=== PATIENT | male | born 1940 | race Caucasian/White ===

== ENCOUNTER 2017-03-13 15:16 | Emergency (ER) | payer MEDICARE, SELFPAY ==
[2017-03-13 15:19] VITALS: BP 113/66; PULSE 65; RESP 18; O2SAT 94; BMI 27.3
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
--- NOTE | 2017-03-13 15:27 | CT_ITS ---
CT head/brain wo con HISTORY: Confusion, altered level of consciousness, altered mental status ITS.REASON: visual halluciations x 2 years ORDERING PHYSICIAN: Brittany Jimenez MD PATIENT AGE: 76 years COMPARISON: 03/19/2015 TECHNIQUE: Axial images obtained without contrast. Brain and bone windows reviewed. FINDINGS: No midline shift, mass effect, intracranial hemorrhage, hydrocephalus, or extra-axial fluid collection is evident. There is generalized atrophy with microangiopathic gliotic change. No significant change. The calvarium has an unremarkable appearance. No mastoid effusion. No sinus air-fluid levels.. IMPRESSION: 1. No acute finding. 2. Atrophy with chronic microangiopathic changes.
--- NOTE | 2017-03-13 15:27 | XR_ITS ---
XR chest AP HISTORY: Heart disease, confusion, altered mental status ITS.REASON: confusion ORDERING PHYSICIAN: Brittany Jimenez MD PATIENT AGE: 76 years COMPARISON: 12/30/2012 FINDINGS: Prior median sternotomy. Normal heart size.. The lungs are clear without infiltrates, suspicious nodules, or pleural effusions. No acute bony abnormalities. IMPRESSION: No change with no acute finding
--- NOTE | 2017-03-13 16:09 | PC.NURSE ---
dr mcpherson spoke with family , family has decided to get the ct and chest xray , but does not want the lab work .
== END 2017-03-13 17:09 | disposition home or self-care (01) ==
PROVIDERS: Emergency Provider Emergency Medicine; Family Provider Internal Medicine; PCP Internal Medicine
DX: F03.90 Unspecified dementia, unspecified severity, without behavioral disturbance, psychotic disturbance, mood disturbance, and anxiety (principal); G20 Parkinson's disease; R44.1 Visual hallucinations; I25.10 Atherosclerotic heart disease of native coronary artery without angina pectoris; Z95.2 Presence of prosthetic heart valve; Z79.82 Long term (current) use of aspirin; I10 Essential (primary) hypertension; F10.20 Alcohol dependence, uncomplicated
CPT/HCPCS: 70450; 71045; 99282

== ENCOUNTER → 2017-10-08 10:10 | Outpatient (CLI) | payer MEDICARE, SELFPAY ==
--- NOTE | 2017-10-08 10:21 | XR_ITS ---
XR shoulder LT min 2V HISTORY: ITS.REASON: LT SHOULDER PAIN,DECREASED ROM ORDERING PHYSICIAN: Darci Motta PATIENT AGE: 77 years Comparison: None FINDINGS: There are severe osteoarthritic changes of the glenohumeral joint with loss of the joint space and osteosclerosis with osteophyte formation and minimal superior subluxation of the humeral head. The acromioclavicular joint has an unremarkable appearance. There is some calcification noted in the region of the supraspinatus tendon consistent with calcific tendinitis. A laminated calcific density is present in the subcoracoid area and may be due to a synovial osteochondroma. No fracture or dislocation. 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
== END ==
PROVIDERS: PCP Internal Medicine; Visit Provider Internal Medicine
DX: M25.511 Pain in right shoulder (principal); R68.89 Other general symptoms and signs
CPT/HCPCS: 73030

== ENCOUNTER → 2018-05-07 12:03 | Outpatient (CLI) | payer MEDICARE, SELFPAY ==
--- NOTE | 2018-05-07 12:08 | XR_ITS ---
XR shoulder LT min 2V HISTORY: Left shoulder pain ITS.REASON: grashy, axillary and supraspinatus views ORDERING PHYSICIAN: Julián Blanco MD PATIENT AGE: 77 years Comparison: 10/08/2017 FINDINGS: There are severe osteoarthritic changes of the glenohumeral joint with some mild cortical irregularity of the humeral head with osteophyte along the inferior aspect of the neck of the humerus. No evidence of fracture or dislocation. Calcification is present along the superior aspect of the humeral head consistent with calcific tendinitis. There is a 2.9 cm loose body along the anterior aspect of the glenoid. IMPRESSION: Severe osteoarthritis with calcific tendinitis and prominent loose body along the anterior medial aspect of the glenoid. Consider CT for better delineation
== END ==
PROVIDERS: PCP Internal Medicine; Visit Provider Orthopaedic Surgery
DX: G89.29 Other chronic pain (principal); M19.012 Primary osteoarthritis, left shoulder; M25.512 Pain in left shoulder
CPT/HCPCS: 73030

== ENCOUNTER → 2018-09-19 13:57 | Outpatient (CLI) | payer MEDICARE, SELFPAY ==
--- NOTE | 2018-09-19 13:59 | CT_ITS ---
CT shoulder LT wo con INDICATION: Left shoulder pain, abnormal radiograph ITS.REASON: evaluate glenoid bone stock ORDERING PHYSICIAN: Julián Blanco MD PATIENT AGE: 78 years COMPARISON: 05/07/2018 TECHNIQUE: Contrast Used: Oral Contrast: Axial images were obtained. Sagittal and coronal reformatted images are Reviewed as well. All CT scans at the facility use one or more dose reduction, viz: automated exposure control, ma/kV adjustment per patient size (including targeted exams where dose is matched to indication, i.e. head), or iterative reconstruction technique. FINDINGS: Severe osteoarthritic changes of the glenohumeral joint with loss of joint space, osteosclerosis, and remodeling of the humeral head and glenoid fossa with osteophyte formation. Small Subarticular cystic changes are present within the humeral head and glenoid . There are mild osteoarthritic changes of the acromioclavicular joint with subacromial stenosis of 5 mm with mild hypertrophic changes along the inferior surface of the acromion and clavicle. There is an abnormal area of soft tissue density along the left humeral neck anteriorly measuring 8 mm rounded in nature with slight increased density centrally. This is in the region of the expected course of the long head of the biceps tendon. There is a 3 cm oval calcific density which is anterior to the glenoid area of the scapula and anterior to the subscapularis muscle. This corresponds to the radiographic abnormality and likely represents a loose calcified intra-articular bodies/synovial osteochondroma within the subscapular/infracoracoid bursa. This is inferior to the coracoid. This is well-circumscribed. No fracture or dislocation. No lytic changes. IMPRESSION: 1. Severe osteoarthritis of the glenohumeral joint 2. 3 cm oval calcific density inferior to the coracoid and anterior to the subscapularis. There is some soft tissue density surrounding this area. This may represent a prominent synovial osteochondroma within the subscapularis bursa. 3. Abnormal soft tissue density in the region of the expected course of the bicipital tendon. Differential diagnosis would include tendinitis, bicipital tendon tear with retraction, or even neoplasm. MRI of the shoulder without and with contrast may add further value if clinically warranted
== END ==
PROVIDERS: PCP Internal Medicine; Visit Provider Orthopaedic Surgery
DX: G89.29 Other chronic pain (principal); M19.012 Primary osteoarthritis, left shoulder; M25.512 Pain in left shoulder
CPT/HCPCS: 73200

== ENCOUNTER 2018-10-14 20:16 | Observation (INO) ==
[2018-10-14 20:32] LABS: Microscopic, Urine URINE MICROSCOPIC (MICROSCOPIC)
[2018-10-14 20:36] LABS: Appearance,Urine CLEAR (Clear); Basophils % 0.4 % (0.1-2.0); Bilirubin,Urine Negative (Negative); Blood, Urine 2+ (Negative); Color,Urine YELLOW (Yellow); Eosinophils % 0.2 % (0.1-12.0); Glucose,Urine (UA) Negative (Negative); Hemoglobin 17.3 g/dL (14.1-18.0); Ketones,Urine Negative (Negative); Leukocyte Esterase,Urine Negative (Negative); Lymphocytes # 1.7 K/mm3 (0.7-4.5); Mean Corpuscular HGB Conc 33.2 g/dL (31.8-35.4); Mean Corpuscular Volume 97.8 fl (80-94); Mean Platelet Volume 9.9 fl (7.4-10.4); Monocytes # 0.6 K/mm3 (0.1-1.0); Monocytes % 5.2 % (1.7-9.3); Neutrophils # 8.3 K/mm3 (1.8-7.8); Neutrophils % 78.3 % (37.0-80.0); Platelet Count 228 K/mm3 (142-424); Protein,Urine 1+ (Negative); Red Blood Count 5.32 M/mm3 (4.60-6.20); Red Cell Distribution Width 12.8 % (11.5-17.5); Specific Gravity, Urine 1.025 (1.005-1.030); White Blood Count 10.6 K/mm3 (4.8-10.8)
[2018-10-14 20:41] LABS: Bacteria,Urine 1+ /lpf; Mucus,Urine 1+ /lpf
[2018-10-14 20:50] LABS: Alanine Aminotransferase 18 U/L (12-78); Albumin Level 4.6 gm/dL (3.4-5.0); Albumin/Globulin Ratio 1.3 (1.1-1.8); Alkaline Phosphatase 71 U/L (46-116); Aspartate Amino Transferase 29 U/L (15-37); Bilirubin,Total 1.1 mg/dL (0.2-1.0); Blood Urea Nitrogen 19 mg/dL (7-18); Calcium 9.6 mg/dL (8.5-10.1); Carbon Dioxide 30 mmol/L (21.0-32.0); Chloride 101 mmol/L (98-107); Globulin 3.6 gm/dl (1.3-3.2); Glucose 104 mg/dL (74-106); Sodium 142 mmol/L (136-145); Total Protein,Serum 8.2 gm/dL (6.4-8.2)
--- NOTE | 2018-10-14 21:12 | Emergency Department Note ---
ED Disposition Clinical Impression: Acute delirium Disposition: Admitted as Observation Condition on Discharge: Good Instructions: DI for Altered Mental Status Referrals: Darci Motta [Primary Care Provider] - - Critical Care Critical Care Time: No Attestation: On 10/14/18, the high probability of a clinically significant, sudden or life threatening deterioration of the following system(s) required my full and direct attention, intervention and personal management. The time I documented below is in addition to time spent performing reported procedures but includes the f theodorelowing listed in this critical care notation. Medical Decision Making - Medical Records Medical records reviewed: Yes: I reviewed the patient's medical records. - Dereck Inquiry Pt receiving controlled substance: No Vital Signs: 10/14/18 20:17 10/14/18 20:32 Temperature 98.8 F Temperature Source Rectal Pulse Rate [Right Radial] 61 Respiratory Rate 20 Blood Pressure [Right Arm] 166/92 H Blood Pressure Mean [Right Arm] 116 02 Sat by Pulse Oximetry 94 L Oxygen Delivery Method Room Air - Lab Data Lab results reviewed: Yes: I reviewed the patient's lab results. Lab Results 10/14/18 20:25: Urine Color Yellow, Urine Appearance Clear, Urine pH 6.0, Ur Specific Cunningham 1.025, Urine Protein 1+, Urine Glucose (UA) Negative, Urine Ketones Negative, Urine Blood 2+, Urine Nitrate Negative, Urine Bilirubin Negative, Urine Urobilinogen 1.0, Ur Leukocyte Esterase Negative, Urine RBC 5- 10, Urine WBC 3-5, Urine Bacteria 1+, Urine Mucus 1+ 10/14/18 20:25: WBC 10.6, RBC 5.32, Hgb 17.3, Hct 52.0, MCV 97.8 H, MCH 32.5 H, MCHC 33.2, RDW 12.8, Plt Count 228, MPV 9.9, Neut % (Auto) 78.3, Lymph % (Auto) 16.0, [place] % (Auto) 5.2, Eos % (Auto) 0.2, Baso % (Auto) 0.4, Neut # (Auto) 8.3 H, Lymph # (Auto) 1.7, [place] # (Auto) 0.6, Eos # (Auto) 0.0, Baso # (Auto) 0.0 10/14/18 20:25: Sodium 142, Potassium 4.0, Chloride 101, Carbon Dioxide 30, Anion Gap 15.0, BUN 19 H, Creatinine 1.03, Estimated Creat Clear 64, Estimated GFR 69, Est GFR ( Amer) 84, Glucose 104, Calcium 9.6, Total Bilirubin 1.1 H, AST 29, ALT 18, Alkaline Phosphatase 71, Troponin I < 0.02, Total Protein 8.2, Albumin 4.6, Globulin 3.6 H, Albumin/Globulin Ratio 1.3 10/14/18 20:25: Lactate 0.8 Result diagrams: 10/14/18 20:25 10/14/18 20:25 Orders (Tests/Meds): ED MEDICATIONS Generic Name Dose Route Start Last Admin Trade Name Freq PRN Reason Stop Dose Admin Sodium Chloride 1,000 mls @ 999 mls/hr 10/14/18 20:45 10/14/18 20:59 Sod Chlor 0.9% 1000ml Bag IV 10/14/18 21:45 999 mls/hr .[id number] FIORDALIZA Administration ORDERS Category Date Time Status CT head/brain wo con Stat Cat Scan 10/14/18 20:24 Taken XR chest portable Stat Exams 10/14/18 20:24 Taken Blood Culture Stat Micro 10/14/18 20:25 Received Urine Culture(cathed specimen) Stat Micro 10/14/18 21:33 Ordered - Radiology Data #1 Image(s): Chest Image Reviewed: Yes I reviewed the patient's radiology image Preliminary Findings: Abnormal - CT Data CT Scan: Head Time Received: 21:[address] Reviewed: Yes: I have viewed the radiologist's interpretation Preliminary Findings: Normal/NAD - ECG Data Tracing #1 Normal Sinus Rhythm: Yes Ischemic changes: non-specific ST-T wave changes Altered Mental Status HPI - General Chief Complaint: Altered Mental Status Stated Complaint: altered mental status Time Seen by Provider: 10/14/18 20:30 Mode of Arrival: EMS Source of Information: Patient, Spouse, Relative, EMS, Medical Record Limitations: Altered Mental Status Description of Symptoms (Recalled from ER Triage Doc. by RN): pt was seen here in [facility] on sunday and dx with bronchitis. states he was given antibiotics and steroids. states that patient has alzheimers and that he has been "acting funny" and she couldnt "bring him back." states that he "wouldnt respond." pt states patient has been running a "light fever." states that the patient hasnt eaten or drank hardly anything for her at home and that he got out of bed last night and "tore the living room up" states that patient is seeing things that arent there and talking to people that arent there. - History of Present Illness HPI narrative: pt with hx of dementia with inc confusion over the last few days - he has dec po intake and reports slight fever at home- no trauma - no rash - he was seen in [facility] on 10/11 and placed on abx/steroids - MD complaint: altered mental status, confusion Onset (ago): day(s) Timing confirmed by: spouse, family member Severity: moderate Consistency of symptoms: waxing and waning Associated symptoms: denies other symptoms - Related Data Home Medications Medication Instructions Recorded Confirmed Allopurinol [Allopurinol 100mg 100 mg PO DAILY 03/13/17 10/14/18 tablet] Aspirin [Aspirin 81mg chewable 81 mg PO DAILY 03/13/17 10/14/18 tab] Atenolol [Atenolol 25mg Tab] 25 mg PO DAILY 03/13/17 10/14/18 Simvastatin 20 mg PO HS 03/13/17 10/14/18 Tamsulosin HCl [Flomax 0.4mg 0.4 mg PO HS 03/13/17 10/14/18 capsule] donepezil 10 mg tablet 10 mg PO HS 10/07/18 10/14/18 memantine 10 mg tablet 10 mg PO BID tab 10/07/18 10/14/18 Cyanocobalamin (Vitamin B-12) 1,000 mcg PO DAILY 10/11/18 10/14/18 [Vitamin B-12 1000mcg Tablet] Thiamine HCl [Vitamin B-1] 250 mg PO DAILY 10/11/18 10/14/18 Azithromycin [Z-Kirill 250mg Tab*] 250 mg PO UD DOSE PK 10/14/18 10/14/18 methylPREDNISolone [Medrol] 4 mg PO DIRECTED 10/14/18 10/14/18 Previous Rx's Medication Instructions Recorded Albuterol Sulfate [Albuterol HFA 1 - 2 puffs IH Q4-6H PRN #1 inh 10/11/18 Inhaler] Allergies Allergy/AdvReac Type Severity Reaction Status Date / Time No Known Allergies Allergy Verified 10/14/18 20:24 [facility] History - Hepatitis A Screen Drug use history?: No High risk sexual behaviors?: No History of sexually transmitted infection?: No Currently employed?: No Childcare worker?: No Do you have indoor plumbing?: Yes Do you have electricity?: Yes Attestation statement:: This patient has been screened for Hepatitis A risk factors. I have reviewed the patient's past medical history: Yes Medical History: Reports:: Coronary Artery Disease, Dementia, Hyperlipidemia, Hypertension Denies:: Diabetes Mellitus Type 1, Diabetes Mellitus Type 2 Other Medical History: Reports: Arthritis Laterality Cases: Right: Arthroscopy Shoulder, Bilateral: Arthroscopy Hip, Total Knee Replacement Other Surgeries: Yes: Other - Social History Smoking Status: Former smoker Alcohol Intake: former Alcohol Intake Frequency:: 0-2 drinks per day Occupational Status: retired Family Hx:: No significant family history ROS Obtained: Yes unobtainable due to mental status Physical Exam - General General appearance: alert - Head Head exam: normocephalic - Eye Eye exam: Present: PERRL, EOMI. Absent: scleral icterus - ENT ENT exam: Present: mucous membranes dry - Neck Neck exam: Present: trachea midline - Respiratory Respiratory exam: Present: normal lung sounds bilaterally. Absent: respiratory distress - Cardiovascular Cardiovascular exam: Present: regular rate, systolic murmur, +S4 - Abdominal Exam Abdominal exam: Present: soft, normal bowel sounds. Absent: tenderness - Extremities Exam Extremities exam: Present: full ROM - Neurological Exam Neurological exam: Present: alert, CN II-XII intact, other (no focal changes ) - Skin Skin exam: Absent: rash
[2018-10-15 04:23] LABS: Basophils % 0.4 % (0.1-2.0); Eosinophils % 0.2 % (0.1-12.0); Hematocrit 44.9 % (42.0-52.0); Lymphocytes # 1.8 K/mm3 (0.7-4.5); Lymphocytes % 22.2 % (10-50); Mean Corpuscular HGB Conc 32.9 g/dL (31.8-35.4); Mean Corpuscular Volume 97.2 fl (80-94); Mean Platelet Volume 10.5 fl (7.4-10.4); Monocytes # 0.5 K/mm3 (0.1-1.0); Monocytes % 5.5 % (1.7-9.3); Neutrophils # 5.9 K/mm3 (1.8-7.8); Neutrophils % 71.6 % (37.0-80.0); Platelet Count 194 K/mm3 (142-424); Red Blood Count 4.62 M/mm3 (4.60-6.20); Red Cell Distribution Width 12.8 % (11.5-17.5); White Blood Count 8.2 K/mm3 (4.8-10.8)
[2018-10-15 04:41] LABS: Anion Gap 11.6 mEq/L (5-15)
[2018-10-15 05:14] LABS: Hemoglobin 14.9 g/dL (14.1-18.0)
[2018-10-15 05:15] LABS: Calcium 8.6 mg/dL (8.5-10.1)
--- NOTE | 2018-10-15 07:26 | Pharmacy Consult Notes ---
[facility] Pharmacy VTE Monitoring - Patient Demographics Admission date: 10/14/18 Report Date: 10/15/18 Time: 07:25 Allergies/Adverse Reactions: Patient Allergies No Known Allergies Allergy (Verified 10/14/18 20:24) Height: 1.7 m Weight: 80.371 kg Patient Problems: Current Active Problems Acute delirium (Acute) - VTE Risk Labs: VTE Related Lab Results Hgb 14.9 g/dL (14.1-18.0) D 10/15/18 04:15 Hct 44.9 % (42.0-52.0) 10/15/18 04:15 Plt Count 194 K/mm3 (142-424) 10/15/18 04:15 BUN 16 mg/dL (7-18) 10/15/18 04:15 Creatinine 0.97 mg/dL (0.70-1.30) 10/15/18 04:15 Estimated Creat Clear 66 mL/min (50-200) 10/15/18 04:15 Was VTE Risk Assessment Performed: Yes VTE Risk Level: Moderate Risk - Prophylaxis VTE Prophylaxis Ordered?: Yes Types of VTE Prophylaxis: TEDS Knee High Location of Applied Device: Bilateral Lower Extremeties - VTE Diagnosis Confirmed Treatment or plan recommended: Continue Current Treatment
[2018-10-15 08:02] VITALS: BP 163/92
--- NOTE | 2018-10-15 10:53 | H&P/Discharge Summary ---
General - General Admission date:: 10/14/18 Discharge date: 10/15/18 *Admission Date: 10/14/18 *Chief complaint: AMS *History of present illness: Mr. Abebe is an 78-year-old male with history of dementia on memantine and donepezil who was started on steroids this past week due to bronchitis. Within 24 hours of starting steroids, the patient developed worsening altered mental status. Was unable to sleep, waking in the night wreaking havoc on his home per his . She states he was confused, not acting himself, showed destructive behavior, total absence of appetite. This concerned her so she brought him to the emergency room where he was admitted for further management. Steroids stopped on admission. She denies any trauma, head injury. States he has been having worsening confusion with waxing and waning over the past few months. On assessment this morning, patient knows his name, where he is. According to his , he is back to baseline and has had "100% improvement". [facility] History I have reviewed the patient's past medical history: Yes Medical History: Reports:: Coronary Artery Disease, Dementia, Hyperlipidemia, Hypertension, Myocardial Infarction Denies:: Cancer, Diabetes Mellitus Type 1, Diabetes Mellitus Type 2 *Have you ever received a pneumonia vaccine?: Yes *Have you received a flu vaccine this season?: Yes Other Medical History: Reports: Arthritis, Cataracts Laterality Cases: Right: Arthroscopy Shoulder, Bilateral: Arthroscopy Hip, Total Knee Replacement Other Surgeries: Yes: Cardiac Surgery, Colonoscopy, Open Heart Surgery, Other (oral surgery) - *Social History Educational Level: Attended College Smoking Status: Former smoker Tobacco Type: cigarettes # Packs/Day (cigarettes): 1 Smoking End Date: 1988 Alcohol Intake: former Alcohol Intake Frequency:: 0-2 drinks per day *Occupational Status:: retired Housing: house Household Members: spouse *Travel in the last 8 weeks: None Family Hx:: No significant family history Review of Systems - Review of Systems Review of systems:: pertinent systems reviewed and negative unless documented below Exam Vital signs and Labs for Last 24 Hours: Temp Pulse Resp BP Pulse Ox 99.0 F 55 L 17 163/92 H 93 L 10/15/18 08:00 10/15/18 08:00 10/15/18 08:00 10/15/18 08:00 10/15/18 08:00 Laboratory Results - last 24 hr 10/14/18 20:25: Urine Color Yellow, Urine Appearance Clear, Urine pH 6.0, Ur Specific [place] 1.025, Urine Protein 1+, Urine Glucose (UA) Negative, Urine Ketones Negative, Urine Blood 2+, Urine Nitrate Negative, Urine Bilirubin Negative, Urine Urobilinogen 1.0, Ur Leukocyte Esterase Negative, Urine RBC 5- 10, Urine WBC 3-5, Urine Bacteria 1+, Urine Mucus 1+ 10/14/18 20:25: WBC 10.6, RBC 5.32, Hgb 17.3, Hct 52.0, MCV 97.8 H, MCH 32.5 H, MCHC 33.2, RDW 12.8, Plt Count 228, MPV 9.9, Neut % (Auto) 78.3, Lymph % (Auto) 16.0, [place] % (Auto) 5.2, Eos % (Auto) 0.2, Baso % (Auto) 0.4, Neut # (Auto) 8.3 H, Lymph # (Auto) 1.7, [place] # (Auto) 0.6, Eos # (Auto) 0.0, Baso # (Auto) 0.0 10/14/18 20:25: Sodium 142, Potassium 4.0, Chloride 101, Carbon Dioxide 30, Anion Gap 15.0, BUN 19 H, Creatinine 1.03, Estimated Creat Clear 64, Estimated GFR 69, Est GFR ( Amer) 84, Glucose 104, Calcium 9.6, Total Bilirubin 1.1 H, AST 29, ALT 18, Alkaline Phosphatase 71, Troponin I < 0.02, Total Protein 8.2, Albumin 4.6, Globulin 3.6 H, Albumin/Globulin Ratio 1.3 10/14/18 20:25: Lactate 0.8 10/15/18 01:05: Troponin I < 0.02 10/15/18 04:15: Troponin I 0.02 10/15/18 04:15: WBC 8.2, RBC 4.62, Hgb 14.9 D, Hct 44.9, MCV 97.2 H, MCH 32.0 H , MCHC 32.9, RDW 12.8, Plt Count 194, MPV 10.5 H, Neut % (Auto) 71.6, Lymph % (Auto) 22.2, [place] % (Auto) 5.5, Eos % (Auto) 0.2, Baso % (Auto) 0.4, Neut # (Auto) 5.9, Lymph # (Auto) 1.8, [place] # (Auto) 0.5, Eos # (Auto) 0.0, Baso # (Aut o) 0.0 10/15/18 04:15: Sodium 144, Potassium 3.6, Chloride 106, Carbon Dioxide 30, Anion Gap 11.6, BUN 16, Creatinine 0.97, Estimated Creat Clear 66, Estimated GFR 74, Est GFR ( Amer) 90, Glucose 82 D, Calcium 8.6 D I & O for Last 24 hours: Intake & Output 10/12/18 10/13/18 10/14/18 10/15/18 23:59 23:59 23:59 23:59 Intake Total 1690 / 1690 Output Total 150 / 150 1000 / 1000 Balance -150 / -150 690 / 690 Weight 79.152 kg 80.371 kg Microbiology Reports for the Last 24 Hours: Microbiology 10/15/18 00:00 Sputum - Expectorated Sputum Gram Stain - Final - Constitutional no acute distress, cooperative - *Routine HEENT Exam Head: Present: normocephalic, atraumatic Eye: Present: EOMI, PERRL ENT: Present: mucous membranes moist - *Routine Neck Exam Present: supple. Absent: lymphadenopathy - *Routine Respiratory Exam Present: CTA bilaterally - *Routine Cardiovascular Exam Present: RRR - *Routine Abdominal Exam Present: soft, normoactive bowel sounds. Absent: tenderness - *Routine Skin Exam Present: warm. Absent: rash - *Routine Neurological Exam Present: alert, oriented X3. Absent: altered mental status Hospital Course Hospital Course: Admitted for altered mental status. Monitored overnight. Steroids held on admission. Patient back to baseline this morning with no further altered mental status. Noted to have slower heart rate in the setting of beta-laura usage however asymptomatic. Patient able to ambulate independently. Of note did have minimal hematuria after catheterization, no obstruction. Remained afebrile, denies shortness of breath, chest pain, nausea or vomiting. Reports improvement in mentation and alertness. No acute needs at this time. Medically stable for discharge home. Recommend follow-up in a week with his primary care and following up with cardiology to discuss adjustments to blood pressure/beta- blockade medications. Results Labs on day of discharge: Labs from last 24 hours 10/15/18 10/15/18 10/15/18 04:15 04:15 04:15 WBC 8.2 RBC 4.62 Hgb 14.9 D Hct 44.9 MCV 97.2 H MCH 32.0 H MCHC 32.9 RDW 12.8 Plt Count 194 MPV 10.5 H Neut % (Auto) 71.6 Lymph % (Auto) 22.2 [place] % (Auto) 5.5 Eos % (Auto) 0.2 Baso % (Auto) 0.4 Neut # (Auto) 5.9 Lymph # (Auto) 1.8 [place] # (Auto) 0.5 Eos # (Auto) 0.0 Baso # (Auto) 0.0 Sodium 144 Potassium 3.6 Chloride 106 Carbon Dioxide 30 Anion Gap 11.6 BUN 16 Creatinine 0.97 Estimated Creat Clear 66 Estimated GFR 74 Est GFR ( Amer) 90 Glucose 82 D Lactate Calcium 8.6 D Total Bilirubin AST ALT Alkaline Phosphatase Troponin I 0.02 Total Protein Albumin Globulin Albumin/Globulin Ratio Urine Color Urine Appearance Urine pH Ur Specific [place] Urine Protein Urine Glucose (UA) Urine Ketones Urine Blood Urine Nitrate Urine Bilirubin Urine Urobilinogen Ur Leukocyte Esterase Urine RBC Urine WBC Urine Bacteria Urine Mucus 10/15/18 10/14/18 10/14/18 01:05 20:25 20:25 WBC RBC Hgb Hct MCV MCH MCHC RDW Plt Count MPV Neut % (Auto) Lymph % (Auto) [place] % (Auto) Eos % (Auto) Baso % (Auto) Neut # (Auto) Lymph # (Auto) [place] # (Auto) Eos # (Auto) Baso # (Auto) Sodium 142 Potassium 4.0 Chloride 101 Carbon Dioxide 30 Anion Gap 15.0 BUN 19 H Creatinine 1.03 Estimated Creat Clear 64 Estimated GFR 69 Est GFR ( Amer) 84 Glucose 104 Lactate 0.8 Calcium 9.6 Total Bilirubin 1.1 H AST 29 ALT 18 Alkaline Phosphatase 71 Troponin I < 0.02 < 0.02 Total Protein 8.2 Albumin 4.6 Globulin 3.6 H Albumin/Globulin Ratio 1.3 Urine Color Urine Appearance Urine pH Ur Specific [place] Urine Protein Urine Glucose (UA) Urine Ketones Urine Blood Urine Nitrate Urine Bilirubin Urine Urobilinogen Ur Leukocyte Esterase Urine RBC Urine WBC Urine Bacteria Urine Mucus 10/14/18 10/14/18 20:25 20:25 WBC 10.6 RBC 5.32 Hgb 17.3 Hct 52.0 MCV 97.8 H MCH 32.5 H MCHC 33.2 RDW 12.8 Plt Count 228 MPV 9.9 Neut % (Auto) 78.3 Lymph % (Auto) 16.0 [place] % (Auto) 5.2 Eos % (Auto) 0.2 Baso % (Auto) 0.4 Neut # (Auto) 8.3 H Lymph # (Auto) 1.7 [place] # (Auto) 0.6 Eos # (Auto) 0.0 Baso # (Auto) 0.0 Sodium Potassium Chloride Carbon Dioxide Anion Gap BUN Creatinine Estimated Creat Clear Estimated GFR Est GFR ( Amer) Glucose Lactate Calcium Total Bilirubin AST ALT Alkaline Phosphatase Troponin I Total Protein Albumin Globulin Albumin/Globulin Ratio Urine Color Yellow Urine Appearance Clear Urine pH 6.0 Ur Specific [place] 1.025 Urine Protein 1+ Urine Glucose (UA) Negative Urine Ketones Negative Urine Blood 2+ Urine Nitrate Negative Urine Bilirubin Negative Urine Urobilinogen 1.0 Ur Leukocyte Esterase Negative Urine RBC 5-10 Urine WBC 3-5 Urine Bacteria 1+ Urine Mucus 1+ DS: Diagnosis - Discharge Diagnosis (1) HTN (hypertension) Status: Chronic (2) Acute delirium Status: Resolved (3) Dementia Status: Chronic (4) CAD (coronary artery disease) Status: Chronic Discharge Plan - Patient Discharge Instructions ACTIVITY: Continue current activity DIET: continue same diet Patient Instructions: DI for Altered Mental Status - Follow up Plan Follow up with: Darci Motta [Primary Care Provider] - Disposition: Home, Self-Halfway Medications: Home Medications Medication Instructions Recorded Confirmed Type Allopurinol [Allopurinol 100mg 200 mg PO DAILY 03/13/17 10/15/18 History tablet] Aspirin [Aspirin 81mg chewable 81 mg PO DAILY 03/13/17 10/14/18 History tab] Atenolol [Atenolol 25mg Tab] 25 mg PO DAILY 03/13/17 10/14/18 History Simvastatin 20 mg PO HS 03/13/17 10/14/18 History Tamsulosin HCl [Flomax 0.4mg 0.4 mg PO HS 03/13/17 10/14/18 History capsule] donepezil 10 mg tablet 10 mg PO HS 10/07/18 10/14/18 History memantine 10 mg tablet 10 mg PO BID tab 10/07/18 10/14/18 History Cyanocobalamin (Vitamin B-12) 1,000 mcg PO DAILY 10/11/18 10/14/18 History [Vitamin B-12 1000mcg Tablet] Thiamine HCl [Vitamin B-1] 250 mg PO DAILY 10/11/18 10/14/18 History Azithromycin [Z-Kirill 250mg Tab*] 250 mg PO UD DOSE PK 10/14/18 10/14/18 History methylPREDNISolone [Medrol] 4 mg PO DIRECTED 10/14/18 10/14/18 History Lisinopril [Lisinopril 20mg Tab] 20 mg PO DAILY 10/15/18 10/15/18 History Polyethylene Glycol 3350 17 gm PO DAILY 10/15/18 10/15/18 History Prescriptions/Medication Reconciliation: Continued memantine 10 mg tablet 10 mg PO BID tab donepezil 10 mg tablet 10 mg PO HS Aspirin [Aspirin 81mg chewable tab] 81 mg PO DAILY Tamsulosin HCl [Flomax 0.4mg capsule] 0.4 mg PO HS Simvastatin 20 mg PO HS Atenolol [Atenolol 25mg Tab] 25 mg PO DAILY Allopurinol [Allopurinol 100mg tablet] 200 mg PO DAILY Cyanocobalamin (Vitamin B-12) [Vitamin B-12 1000mcg Tablet] 1,000 mcg PO DAILY Thiamine HCl [Vitamin B-1] 250 mg PO DAILY Polyethylene Glycol 3350 17 gm PO DAILY Lisinopril [Lisinopril 20mg Tab] 20 mg PO DAILY Discontinued methylPREDNISolone [Medrol] 4 mg PO DIRECTED Azithromycin [Z-Kirill 250mg Tab*] 250 mg PO UD DOSE PK - Problem Reconciliation Problems Reviewed?: Yes
--- NOTE | 2018-10-17 18:19 | Electrocardiograph Report ---
APPROVED REPORT Exam: Resting ECG HR:60 bpm ECG Measurements Heart Rate 60 AXES CA 148 P -29 QRSd 72 QRS -24 QT 426 T-16 QTc 426 <Conclusion> Normal sinus rhythm LA Abnormal ECG Electronically signed by : Darci Motta, 10/17/2018 18:18:29
== END 2018-10-15 15:10 | disposition home or self-care (01) ==
LOC: 2ND 20:16 → ER 20:16 → 2ND 22:18
PROVIDERS: ADMIT Family Medicine; ATTEND Internal Medicine Adolescent Medicine
DX: F03.90 Unspecified dementia, unspecified severity, without behavioral disturbance, psychotic disturbance, mood disturbance, and anxiety; Z79.52 Long term (current) use of systemic steroids; Z79.899 Other long term (current) drug therapy; I25.2 Old myocardial infarction; Z79.82 Long term (current) use of aspirin; I10 Essential (primary) hypertension; I25.10 Atherosclerotic heart disease of native coronary artery without angina pectoris
CPT/HCPCS: 36415; 70450; 71010; 71045; 80048; 80053; 81001; 83605; 84484; 85025; 87040; 87070; 87205; 93005; 96365; 99285; G0378

== ENCOUNTER 2018-10-16 10:15 | Observation (INO) ==
[2018-10-16 10:19] LABS: Microscopic, Urine URINE MICROSCOPIC (MICROSCOPIC)
[2018-10-16 10:33] LABS: Appearance,Urine CLEAR (Clear); Bilirubin,Urine Negative (Negative); Blood, Urine 2+ (Negative); Color,Urine YELLOW (Yellow); Glucose,Urine (UA) Negative (Negative); Ketones,Urine Negative (Negative); Leukocyte Esterase,Urine Negative (Negative); PH,Urine 6.5 (5.0-8.5); Protein,Urine Negative (Negative)
[2018-10-16 10:38] LABS: Anion Gap 10.6 mEq/L (5-15); Blood Urea Nitrogen 14 mg/dL (7-18); Calcium 9.1 mg/dL (8.5-10.1); Carbon Dioxide 31 mmol/L (21.0-32.0); Chloride 102 mmol/L (98-107); Glucose 107 mg/dL (74-106); Sodium 140 mmol/L (136-145)
[2018-10-16 10:40] LABS: Basophils # 0.1 K/mm3 (0-0.2); Basophils % 0.6 % (0.1-2.0); Eosinophils # 0.1 K/mm3 (0.0-0.4); Eosinophils % 0.6 % (0.1-12.0); Hematocrit 48.2 % (42.0-52.0); Hemoglobin 16.1 g/dL (14.1-18.0); Lymphocytes # 1.5 K/mm3 (0.7-4.5); Lymphocytes % 14.8 % (10-50); Mean Corpuscular HGB Conc 33.4 g/dL (31.8-35.4); Mean Corpuscular Volume 96.9 fl (80-94); Mean Platelet Volume 9.8 fl (7.4-10.4); Monocytes # 0.8 K/mm3 (0.1-1.0); Monocytes % 7.4 % (1.7-9.3); Neutrophils # 7.9 K/mm3 (1.8-7.8); Neutrophils % 76.7 % (37.0-80.0); Platelet Count 222 K/mm3 (142-424); Red Blood Count 4.97 M/mm3 (4.60-6.20); Red Cell Distribution Width 12.9 % (11.5-17.5); White Blood Count 10.3 K/mm3 (4.8-10.8)
[2018-10-16 10:58] LABS: Bacteria,Urine Trace /lpf; Squamous Epithelial Cell,Urine Occasional #/hpf (0-5)
--- NOTE | 2018-10-16 13:05 | Pharmacy Consult Notes ---
[facility] Pharmacy VTE Monitoring - Patient Demographics Admission date: 10/16/18 Report Date: 10/16/18 Time: 13:05 Allergies/Adverse Reactions: Patient Allergies No Known Allergies Allergy (Verified 10/14/18 20:24) Height: 1.7 m Weight: 77.819 kg - VTE Risk Labs: VTE Related Lab Results Hgb 16.1 g/dL (14.1-18.0) 10/16/18 10:16 Hct 48.2 % (42.0-52.0) 10/16/18 10:16 Plt Count 222 K/mm3 (142-424) 10/16/18 10:16 BUN 14 mg/dL (7-18) 10/16/18 10:16 Creatinine 1.03 mg/dL (0.70-1.30) 10/16/18 10:16 Was VTE Risk Assessment Performed: Yes VTE Risk Level: Low Risk - Prophylaxis VTE Prophylaxis Ordered?: Yes Types of VTE Prophylaxis: TEDS Knee High Location of Applied Device: Bilateral Lower Extremeties
[2018-10-16 13:29] LABS: Anion Gap 10.7 mEq/L (5-15)
[2018-10-16 13:39] LABS: Basophils # 0.1 K/mm3 (0-0.2); Basophils % 0.5 % (0.1-2.0); Eosinophils % 0.3 % (0.1-12.0); Hemoglobin 15.5 g/dL (14.1-18.0); Lymphocytes # 1.6 K/mm3 (0.7-4.5); Mean Corpuscular Volume 97.1 fl (80-94); Mean Platelet Volume 9.8 fl (7.4-10.4); Monocytes # 0.6 K/mm3 (0.1-1.0); Monocytes % 6.1 % (1.7-9.3); Neutrophils # 7.9 K/mm3 (1.8-7.8); Neutrophils % 77.1 % (37.0-80.0); Platelet Count 203 K/mm3 (142-424); Red Blood Count 4.83 M/mm3 (4.60-6.20); Red Cell Distribution Width 12.8 % (11.5-17.5); White Blood Count 10.2 K/mm3 (4.8-10.8)
--- NOTE | 2018-10-16 17:42 | History & Physical Report ---
*Admission Date: 10/16/18 *Chief complaint: Confusion/cough *History of present illness: 78-year-old white male, patient of Dr. Motta in the outpatient setting, who was admitted this weekend for a 24-hour observation stay because of mental status changes and confusion and coughing. Patient was admitted, it was felt that his mental status changes had been related to prednisone given in the outpatient setting, and the morning of discharge which was 10/15/2018, his reported to our service that he was "100% better" and wished to be discharged home. This was accomplished without complications. Apparently over the next 24 hours the patient continued to become somewhat confused and exhibited continued coughing. The brought the patient back to Dr. Motta's office today, and he contacted me because patient's is unable to care for the patient at home given his increasing physical debility and confusion episodes. There was also some concern about a possible pneumonia and patient was admitted from Dr. Motta's office with diagnosis of lobar pneumonia. On review of the chest x-rays, patient has had a left lower lobe infiltrate since October 11 and this morning's x-ray actually shows improvement in that infiltrate with no evidence of worsening or hypervascularity. Patient does have chronic COPD changes. Of note patient has never had leukocytosis or fever, blood cultures remain negative from his prior admission, sputum cultures are nondiagnostic. Some concern about a urinary tract infection given blood and bacteria in the urine but patient has no leukocyte esterase or nitrate on urine sampling. Patient denies urinary symptoms. [facility] History I have reviewed the patient's past medical history: Yes Medical History: Reports:: Coronary Artery Disease, Dementia, Hyperlipidemia, Hypertension, Myocardial Infarction Denies:: Cancer, Diabetes Mellitus Type 1, Diabetes Mellitus Type 2 *Have you ever received a pneumonia vaccine?: Yes *Have you received a flu vaccine this season?: Yes Other Medical History: Reports: Arthritis, Cataracts Comment:: Patient has significant gait disturbance. States that he has been rozina d he has "the beginnings" of parkinsonism Laterality Cases: Right: Arthroscopy Shoulder, Bilateral: Arthroscopy Hip Other Surgeries: Yes: Cardiac Surgery, Colonoscopy, Open Heart Surgery, Other (oral surgery) - *Social History Educational Level: Attended College Smoking Status: Former smoker Tobacco Type: cigarettes # Packs/Day (cigarettes): 1 Alcohol Intake: former Alcohol Intake Frequency:: 0-2 drinks per day *Occupational Status:: retired Housing: house Household Members: spouse *Travel in the last 8 weeks: None Family Hx:: No significant family history Review of Systems - Review of Systems Review of systems:: unable to obtain Patient states he is feeling good. Specifically denies chest pain, abdominal pain or nausea. Denies joint pain or stiffness. Otherwise review of systems unobtainable because of cognitive impairment. Meds Home Medications Medication Instructions Recorded Confirmed Type Allopurinol [Allopurinol 100mg 200 mg PO DAILY 03/13/17 10/16/18 History tablet] Aspirin [Aspirin 81mg chewable 81 mg PO DAILY 03/13/17 10/16/18 History tab] Atenolol [Atenolol 25mg Tab] 25 mg PO DAILY 03/13/17 10/16/18 History Simvastatin 20 mg PO HS 03/13/17 10/16/18 History Tamsulosin HCl [Flomax 0.4mg 0.4 mg PO HS 03/13/17 10/16/18 History capsule] donepezil 10 mg tablet 10 mg PO HS 10/07/18 10/16/18 History memantine 10 mg tablet 10 mg PO BID tab 10/07/18 10/16/18 History Cyanocobalamin (Vitamin B-12) 1,000 mcg PO DAILY 10/11/18 10/16/18 History [Vitamin B-12 1000mcg Tablet] Thiamine HCl [Vitamin B-1] 250 mg PO DAILY 10/11/18 10/16/18 History Lisinopril [Lisinopril 20mg Tab] 20 mg PO DAILY 10/15/18 10/16/18 History Naproxen Sodium [Aleve 220mg Tab] 220 mg PO BID 10/16/18 10/16/18 History Allergies Allergy/AdvReac Type Severity Reaction Status Date / Time No Known Allergies Allergy Verified 10/14/18 20:24 Exam Vital signs and Labs for Last 24 Hours: Temp Pulse Resp BP Pulse Ox 98.1 F 60 20 179/76 H 95 10/16/18 15:57 10/16/18 15:57 10/16/18 15:57 10/16/18 15:57 10/16/18 15:57 Laboratory Results - last 24 hr 10/16/18 10:16: WBC 10.3 D, RBC 4.97, Hgb 16.1, Hct 48.2, MCV 96.9 H, MCH 32.4 H, MCHC 33.4, RDW 12.9, Plt Count 222, MPV 9.8, Neut % (Auto) 76.7, Lymph % (Auto) 14.8, [place] % (Auto) 7.4, Eos % (Auto) 0.6, Baso % (Auto) 0.6, Neut # (Auto) 7.9 H, Lymph # (Auto) 1.5, [place] # (Auto) 0.8, Eos # (Auto) 0.1, Baso # (Auto) 0.1 10/16/18 10:16: Sodium 140, Potassium 3.6, Chloride 102, Carbon Dioxide 31, Anion Gap 10.6, BUN 14, Creatinine 1.03, Estimated GFR 69, Est GFR ( Amer) 84, Glucose 107 H, Calcium 9.1 10/16/18 10:16: Urine Color Yellow, Urine Appearance Clear, Urine pH 6.5, Ur Specific [place] 1.020, Urine Protein Negative, Urine Glucose (UA) Negative, Urine Ketones Negative, Urine Blood 2+, Urine Nitrate Negative, Urine Bilirubin Negative, Urine Urobilinogen 1.0, Ur Leukocyte Esterase Negative, Urine RBC 5- 10, Urine WBC 3-5, Ur Squamous Epith Cells Occasional, Urine Bacteria Trace 10/16/18 13:11: WBC 10.2, RBC 4.83, Hgb 15.5, Hct 47.0, MCV 97.1 H, MCH 32.1 H, MCHC 33.0, RDW 12.8, Plt Count 203, MPV 9.8, Neut % (Auto) 77.1, Lymph % (Auto) 16.0, [place] % (Auto) 6.1, Eos % (Auto) 0.3, Baso % (Auto) 0.5, Neut # (Auto) 7.9 H, Lymph # (Auto) 1.6, [place] # (Auto) 0.6, Eos # (Auto) 0.0, Baso # (Auto) 0.1 10/16/18 13:11: Sodium 143, Potassium 3.7, Chloride 105, Carbon Dioxide 31, Anion Gap 10.7, BUN 13, Creatinine 0.95, Estimated Creat Clear 65, Estimated GFR 76, Est GFR ( Amer) 92, Glucose 100, Calcium 9.0 I & O for Last 24 hours: Intake & Output 10/14/18 10/15/18 10/16/18 10/17/18 11:59 11:59 11:59 11:59 Intake Total 407 / 407 Balance 407 / 407 Weight 171 lb 9 oz Narrative: Pleasant white male, eating supper vigorously. Lungs have good air movement. Heart rate regular. Abdomen soft and nontender. Masked facies and cogwheeling in his extremities. Some intention tremor. No edema or clubbing. Oropharynx clear, dentition reasonable. Sclera clear of icterus changes. Assessment and Plan (1) Parkinsons disease Current visit: No Status: Acute Category: Medical Code(s): G20 - Parkinson's disease Patient has fairly consistent symptoms and signs of Parkinson's disease with dementia. I think starting low-dose Sinemet would be reasonable. (2) Pneumonia Current visit: No Status: Acute Qualifiers: Pneumonia type: due to unspecified organism Laterality: unspecified la terality Lung location: unspecified part of lung Qualified Code(s): J18.9 - Pneumonia, unspecified organism Category: Medical Code(s): J18.9 - Pneumonia, unspecified organism Chest x-ray with infiltrate, but clinically patient is not afflicted with signs or symptoms of pneumonia. IV antibiotics given his tenuous COPD status. (3) Dementia Current visit: No Status: Chronic Category: Medical Code(s): F03.90 - Unspecified dementia without behavioral disturbance Continue current therapy. Patient will probably need long-term care evaluation.
--- NOTE | 2018-10-17 07:47 | Progress Note ---
Internal Medicine - PN: Subj *Date: 10/17/18 *Time: 08:30 Interval history: Patient is remained stable. Blood pressure continues to be elevated overnight. Will make adjustments to blood pressure medications this morning. Denies chest pain, shortness of breath, nausea, vomiting. Stable on room air. No fevers. Speech continues to be mumbled but understandable. Physical therapy saw patient, recommends placement for rehab given his difficulty with gait, ability to only walk 20 feet, and confusion. Exam Vital signs and Labs for Last 24 Hours: Temp Pulse Resp BP Pulse Ox 99.2 F 73 18 170/83 H 93 L 10/17/18 07:37 10/17/18 07:37 10/17/18 07:37 10/17/18 07:37 10/17/18 07:37 Laboratory Results - last 24 hr 10/16/18 10:16: WBC 10.3 D, RBC 4.97, Hgb 16.1, Hct 48.2, MCV 96.9 H, MCH 32.4 H, MCHC 33.4, RDW 12.9, Plt Count 222, MPV 9.8, Neut % (Auto) 76.7, Lymph % (Auto) 14.8, [place] % (Auto) 7.4, Eos % (Auto) 0.6, Baso % (Auto) 0.6, Neut # (Auto) 7.9 H, Lymph # (Auto) 1.5, [place] # (Auto) 0.8, Eos # (Auto) 0.1, Baso # (Auto) 0.1 10/16/18 10:16: Sodium 140, Potassium 3.6, Chloride 102, Carbon Dioxide 31, Anion Gap 10.6, BUN 14, Creatinine 1.03, Estimated GFR 69, Est GFR ( Amer) 84, Glucose 107 H, Calcium 9.1 10/16/18 10:16: Urine Color Yellow, Urine Appearance Clear, Urine pH 6.5, Ur Specific [place] 1.020, Urine Protein Negative, Urine Glucose (UA) Negative, Urine Ketones Negative, Urine Blood 2+, Urine Nitrate Negative, Urine Bilirubin Negative, Urine Urobilinogen 1.0, Ur Leukocyte Esterase Negative, Urine RBC 5- 10, Urine WBC 3-5, Ur Squamous Epith Cells Occasional, Urine Bacteria Trace 10/16/18 13:11: WBC 10.2, RBC 4.83, Hgb 15.5, Hct 47.0, MCV 97.1 H, MCH 32.1 H, MCHC 33.0, RDW 12.8, Plt Count 203, MPV 9.8, Neut % (Auto) 77.1, Lymph % (Auto) 16.0, [place] % (Auto) 6.1, Eos % (Auto) 0.3, Baso % (Auto) 0.5, Neut # (Auto) 7.9 H, Lymph # (Auto) 1.6, [place] # (Auto) 0.6, Eos # (Auto) 0.0, Baso # (Auto) 0.1 10/16/18 13:11: Sodium 143, Potassium 3.7, Chloride 105, Carbon Dioxide 31, Anion Gap 10.7, BUN 13, Creatinine 0.95, Estimated Creat Clear 65, Estimated GFR 76, Est GFR ( Amer) 92, Glucose 100, Calcium 9.0 I & O for Last 24 hours: Intake & Output 10/14/18 10/15/18 10/16/18 10/17/18 23:59 23:59 23:59 23:59 Intake Total 647 / 647 1002 / 1002 Output Total 725 / 725 Balance 647 / 322 277 / 277 Weight 77.819 kg 78.131 kg Narrative: Pleasant white male, sitting upright in bed, no acute distress, on ambient air. Lungs have good air movement, no crackles or wheeze Heart rate regular, no appreciable murmur. Abdomen soft and nontender. Masked facies and cogwheeling in his extremities. Some intention tremor in bilateral hands No edema or clubbing. Oropharynx clear Sclera clear of icterus changes. Assessment and Plan (1) Parkinsons disease Current visit: No Status: Acute Category: Medical Code(s): G20 - Parkinson's disease (2) Pneumonia Current visit: No Status: Acute Qualifiers: Pneumonia type: due to unspecified organism Laterality: unspecified laterality Lung location: unspecified part of lung Qualified Code(s): J18.9 - Pneumonia, unspecified organism Category: Medical Code(s): J18.9 - Pneumonia, unspecified organism (3) Dementia Current visit: No Status: Chronic Category: Medical Code(s): F03.90 - Unspecified dementia without behavioral disturbance (4) HTN (hypertension) Current visit: No Status: Chronic Qualifiers: Hypertension type: essential hypertension Qualified Code(s): I10 - Essential (primary) hypertension Category: Medical Code(s): I10 - Essential (primary) hypertension Adjusted blood pressure medication, increase lisinopril to 40 mg daily - Assessment and plan all Dx Assessment and Plan for all problems:: 78-year-old gentleman readmitted due to return of confusion. Concern for Parkinson's on initial assessment. Initiated on Sinemet. Physical therapy has assessed patient. Continues to require inpatient management pending placement.
--- NOTE | 2018-10-17 18:15 | Electrocardiograph Report ---
APPROVED REPORT Exam: Resting ECG HR:57 bpm ECG Measurements Heart Rate 57 AXES ME 176 P 1 QRSd 80 QRS -34 QT 430 T-34 QTc 418 <Conclusion> Sinus bradycardia Left axis deviation,LAHB NDST-T Changes Abnormal ECG Electronically signed by : Darci Motta, 10/17/2018 18:15:05
[2018-10-18 06:24] LABS: Anion Gap 11.2 mEq/L (5-15)
[2018-10-18 06:33] LABS: Basophils # 0.1 K/mm3 (0-0.2); Basophils % 0.6 % (0.1-2.0); Calcium 7.8 mg/dL (8.5-10.1); Eosinophils # 0.1 K/mm3 (0.0-0.4); Eosinophils % 1.5 % (0.1-12.0); Hematocrit 42.2 % (42.0-52.0); Hemoglobin 13.7 g/dL (14.1-18.0); Lymphocytes # 1.7 K/mm3 (0.7-4.5); Mean Corpuscular HGB Conc 32.5 g/dL (31.8-35.4); Mean Platelet Volume 10.2 fl (7.4-10.4); Monocytes # 0.7 K/mm3 (0.1-1.0); Monocytes % 7.7 % (1.7-9.3); Neutrophils # 6.2 K/mm3 (1.8-7.8); Neutrophils % 71.1 % (37.0-80.0); Platelet Count 173 K/mm3 (142-424); Red Blood Count 4.35 M/mm3 (4.60-6.20); Red Cell Distribution Width 12.7 % (11.5-17.5); White Blood Count 8.7 K/mm3 (4.8-10.8)
--- NOTE | 2018-10-18 08:49 | Progress Note ---
Internal Medicine - PN: Subj *Date: 10/18/18 *Time: 08:46 Interval history: Patient bedside chair this morning on interview. Alert and oriented to person place and time. Extensive discussion about placement options with patient this morning. While he is slow to respond, he is cognizant of the difficulty with insurance pre-CERT, his diagnosis of dementia, and is aware of the hallucinations he is having at night. Reports understanding is having hallucinations but also realizes that they are not real. Did not sleep well overnight. Tolerating p.o. intake. Afebrile. No nausea, vomiting, diarrhea, chest pain, shortness of breath. Remains stable on room air Exam Vital signs and Labs for Last 24 Hours: Temp Pulse Resp BP Pulse Ox 98.1 F 60 18 152/75 H 96 10/18/18 08:00 10/18/18 08:00 10/18/18 08:00 10/18/18 08:00 10/18/18 08:00 Laboratory Results - last 24 hr 10/18/18 05:40: WBC 8.7, RBC 4.35 L, Hgb 13.7 L, Hct 42.2, MCV 97.0 H, MCH 31.5 H, MCHC 32.5, RDW 12.7, Plt Count 173, MPV 10.2, Neut % (Auto) 71.1, Lymph % (Auto) 19.0, [place] % (Auto) 7.7, Eos % (Auto) 1.5, Baso % (Auto) 0.6, Neut # (Auto) 6.2, Lymph # (Auto) 1.7, [place] # (Auto) 0.7, Eos # (Auto) 0.1, Baso # (Auto) 0.1 10/18/18 05:40: Sodium 144, Potassium 3.2 L, Chloride 109 H, Carbon Dioxide 27, Anion Gap 11.2, BUN 10, Creatinine 0.84, Estimated Creat Clear 65, Estimated GFR 88, Est GFR ( Amer) 106, Glucose 81, Calcium 7.8 L D I & O for Last 24 hours: Intake & Output 10/15/18 10/16/18 10/17/18 10/18/18 23:59 23:59 23:59 23:59 Intake Total 797 / 797 1242 / 1242 831 / 831 Output Total 1025 / 1025 200 / 200 Balance 797 / 472 217 / 217 631 / 631 Weight 77.819 kg 78.131 kg 77.593 kg Narrative: Pleasant white male, sitting upright in bedside chair, no acute distress, on ambient air. Lungs have good air movement, no crackles or wheeze Heart rate regular, no appreciable murmur. Abdomen soft and nontender. Masked facies and cogwheeling in his extremities. Some intention tremor in bilateral hands No edema or clubbing. Oropharynx clear Sclera clear of icterus changes. Assessment and Plan (1) Parkinsons disease Current visit: No Status: Acute Category: Medical Code(s): G20 - Parkinson's disease (2) Pneumonia Current visit: No Status: Acute Qualifiers: Pneumonia type: due to unspecified organism Laterality: unspecified laterality Lung location: unspecified part of lung Qualified Code(s): J18.9 - Pneumonia, unspecified organism Category: Medical Code(s): J18.9 - Pneumonia, unspecified organism (3) Dementia Current visit: No Status: Chronic Category: Medical Code(s): F03.90 - Unspecified dementia without behavioral disturbance (4) HTN (hypertension) Current visit: No Status: Chronic Qualifiers: Hypertension type: essential hypertension Qualified Code(s): I10 - Essential (primary) hypertension Category: Medical Code(s): I10 - Essential (primary) hypertension - Assessment and plan all Dx Assessment and Plan for all problems:: 78-year-old male with dementia and Parkinson's. Currently being treated for suspected pneumonia though he has no respiratory distress or hypoxemia. Having some hallucinations at night, may be secondary to Sinemet. At this time we will continue medications and monitor given patient's diagnosis of Parkinson's and potential benefit can provide. Awaiting pre-CERT from insurance for possible placement though have low suspicion patient will qualify as he has limited skillable need. Will likely discharge home with . In that setting will attempt to set up with home health. Condition guarded. Prognosis fair
--- NOTE | 2018-10-18 15:22 | Discharge Summary ---
General - General Admission date:: 10/16/18 Discharge date: 10/18/18 HPI HPI: 78-year-old white male, patient of Dr. Motta in the outpatient setting, who was admitted this weekend for a 24-hour observation stay because of mental status changes and confusion and coughing. Patient was admitted, it was felt that his mental status changes had been related to prednisone given in the outpatient setting, and the morning of discharge which was 10/15/2018, his reported to our service that he was "100% better" and wished to be discharged home. This was accomplished without complications. Apparently over the next 24 hours the patient continued to become somewhat confused and exhibited continued coughing. The brought the patient back to Dr. Motta's office today, and he contacted me because patient's is unable to care for the patient at home given his increasing physical debility and confusion episodes. There was also some concern about a possible pneumonia and patient was admitted from Dr. Motta's office with diagnosis of lobar pneumonia. On review of the chest x-rays, patient has had a left lower lobe infiltrate since October 11 and this morning's x-ray actually shows improvement in that infiltrate with no evidence of worsening or hypervascularity. Patient does have chronic COPD changes. Of note patient has never had leukocytosis or fever, blood cultures remain negative from his prior admission, sputum cultures are nondiagnostic. Some concern about a urinary tract infection given blood and bacteria in the urine but patient has no leukocyte esterase or nitrate on urine sampling. Patient denies urinary symptoms. Hospital Course Hospital Course: Patient was admitted, blood cultures were negative, sputum cultures were negative, and chest x-ray showed improving infiltrate. As a result, antibiotics were not continued PT evaluated patient and felt patient would benefit from ongoing long-term care. Family also agreed the patient needed long-term care placement. In hospital patient was diagnosed with parkinsonism and Sinemet was started without complications. Today, care management had a long conversation with patient's family who agreed to admit patient to the [facility] in [place]. He will be transferred there today, we will follow him up on our regular detention rounds and medication as noted will continue. Objective Vital signs: Temp Pulse Resp BP Pulse Ox 98.1 F 60 18 130/85 96 10/18/18 08:00 10/18/18 08:00 10/18/18 08:00 10/18/18 12:00 10/18/18 08:00 Narrative: Patient is pleasant, alert, oriented x1. Parkinsonism features noted and masked face he is cogwheeling. Instability and gait disturbance as recorded on physical therapy notes. Lungs have good air movement, no rhonchi or crackles. Heart rate regular. Abdomen soft and nontender. No perfusion deficits in extremities. Neurologic examination as noted above. Oropharynx clear with no lesions, no JVD. Results Labs on day of discharge: Labs from last 24 hours 10/18/18 10/18/18 05:40 05:40 WBC 8.7 RBC 4.35 L Hgb 13.7 L Hct 42.2 MCV 97.0 H MCH 31.5 H MCHC 32.5 RDW 12.7 Plt Count 173 MPV 10.2 Neut % (Auto) 71.1 Lymph % (Auto) 19.0 [place] % (Auto) 7.7 Eos % (Auto) 1.5 Baso % (Auto) 0.6 Neut # (Auto) 6.2 Lymph # (Auto) 1.7 [place] # (Auto) 0.7 Eos # (Auto) 0.1 Baso # (Auto) 0.1 Sodium 144 Potassium 3.2 L Chloride 109 H Carbon Dioxide 27 Anion Gap 11.2 BUN 10 Creatinine 0.84 Estimated Creat Clear 65 Estimated GFR 88 Est GFR ( Amer) 106 Glucose 81 Calcium 7.8 L D DS: Diagnosis - Discharge Diagnosis (1) Parkinsons disease Status: Chronic (2) Pneumonia Status: Acute (3) Dementia Status: Chronic (4) HTN (hypertension) Status: Chronic Discharge Plan - Patient Discharge Instructions ACTIVITY: Continue current activity DIET: continue same diet Patient Instructions: DI for Pneumonia -- Adult - Follow up Plan Follow up with: Kayla Rodriguez APRN [Nurse Practitioner] - Disposition: Xfer [facility] Home Medications: Home Medications Medication Instructions Recorded Confirmed Type Allopurinol [Allopurinol 100mg 200 mg PO DAILY 03/13/17 10/16/18 History tablet] Aspirin [Aspirin 81mg chewable 81 mg PO DAILY 03/13/17 10/16/18 History tab] Atenolol [Atenolol 25mg Tab] 25 mg PO DAILY 03/13/17 10/16/18 History Simvastatin 20 mg PO HS 03/13/17 10/16/18 History Tamsulosin HCl [Flomax 0.4mg 0.4 mg PO HS 03/13/17 10/16/18 History capsule] donepezil 10 mg tablet 10 mg PO HS 10/07/18 10/16/18 History memantine 10 mg tablet 10 mg PO BID tab 10/07/18 10/16/18 History Cyanocobalamin (Vitamin B-12) 1,000 mcg PO DAILY 10/11/18 10/16/18 History [Vitamin B-12 1000mcg Tablet] Thiamine HCl [Vitamin B-1] 250 mg PO DAILY 10/11/18 10/16/18 History Lisinopril [Lisinopril 20mg Tab] 20 mg PO DAILY 10/15/18 10/16/18 History Naproxen Sodium [Aleve 220mg Tab] 220 mg PO BID 10/16/18 10/16/18 History Prescriptions/Medication Reconciliation: New Carbidopa/Levodopa [Carbidopa/Levodopa 25/100mg Tablet] 1 each PO TID tablet Continued memantine 10 mg tablet 10 mg PO BID tab donepezil 10 mg tablet 10 mg PO HS Aspirin [Aspirin 81mg chewable tab] 81 mg PO DAILY Tamsulosin HCl [Flomax 0.4mg capsule] 0.4 mg PO HS Simvastatin 20 mg PO HS Atenolol [Atenolol 25mg Tab] 25 mg PO DAILY Allopurinol [Allopurinol 100mg tablet] 200 mg PO DAILY Cyanocobalamin (Vitamin B-12) [Vitamin B-12 1000mcg Tablet] 1,000 mcg PO DAILY Naproxen Sodium [Aleve 220mg Tab] 220 mg PO BID Thiamine HCl [Vitamin B-1] 250 mg PO DAILY Lisinopril [Lisinopril 20mg Tab] 20 mg PO DAILY - Problem Reconciliation Problems Reviewed?: Yes
== END 2018-10-18 16:14 ==
LOC: LAB 10:15 → 2ND 10:15
PROVIDERS: ADMIT Internal Medicine Adolescent Medicine; ATTEND Internal Medicine Adolescent Medicine
CPT/HCPCS: 36415; 71020; 71046; 80048; 81001; 85025; 93005; 97116; 97161; 97166; 97530; 97535; G0378; J1956

== ENCOUNTER 2019-09-29 12:01 | Emergency (ER) | payer MEDICARE, SELFPAY ==
[2019-09-29 12:03] VITALS: BP 145/83; PULSE 62; RESP 17; TEMP 36.6; O2SAT 98; BMI 18.4
--- NOTE | 2019-09-29 12:04 | HMH.EDGENADL ---
ED Disposition Clinical Impression: Encounter for medical screening examination Disposition: Home, Self-Care Condition on Discharge: Good Instructions: DI for Altered Mental Status Additional Instructions: Follow up with primary care provider today or tomorrow for reevaluation. Return for any worsening symptoms. - Critical Care Critical Care Time: No Attestation: On , the high probability of a clinically significant, sudden or life threatening deterioration of the following system(s) required my full and direct attention, intervention and personal management. The time I documented below is in addition to time spent performing reported procedures but includes the following listed in this critical care notation. Medical Decision Making - Medical Records Medical records reviewed: Yes: I reviewed the patient's medical records. - Dereck Inquiry Pt receiving controlled substance: No Medical Decision Narrative: Patient here with stable vital signs in route with EMS. He is afebrile and has absolutely no complaints, is a good historian. His vital signs are stable here as well with no acute concerns. Fingerstick is 100. Discharged back to halfway. We are happy to reevaluate him should they have any acute concerns, however they only reported decreased responsiveness and abnormal vital signs and that is certainly not the picture that has been present for EMS or us here. Possible polypharmacy from night time meds now resolved? Regardless, patient has no complaints and stable vital signs, is afebrile, no need for emergent work-up at this time. General Adult HPI - General Stated complaint: Weakness Time Seen by Provider: 09/29/19 12:09 Mode of Arrival: EMS Source of Information: Patient, EMS, Medical Record Limitations: No Limitations - History of Present Illness HPI narrative: This is an 79-year-old male with a past medical history significant for dementia, hypertension, hyperlipidemia who presents to the emergency department with no complaints. [facility] called report stating that he had decreased responsiveness, blood pressures that were varying from 70 systolic to 120 systolic and a heart rate that varied from normal to 30. He had no acute symptoms from that report either. Per EMS, patient has had a blood pressure in the 120 systolic the entire time, has been alert, communicative and at his mental baseline given his history of dementia. He has had a normal sinus rhythm with no bradycardia and patient had no complaints in route. Here, patient continues to have no complaints. He is alert and oriented x3 and is a good historian. His fingerstick is 100 and his vital signs are normal. - Related Data Home Medications Medication Instructions Recorded Confirmed Aspirin [Aspirin 81mg chewable 81 mg PO DAILY 03/13/17 10/16/18 tab] Simvastatin 20 mg PO HS 03/13/17 10/16/18 Tamsulosin HCl [Flomax 0.4mg 0.4 mg PO HS 03/13/17 10/16/18 capsule] allopurinoL [Allopurinol 100mg 200 mg PO DAILY 03/13/17 10/16/18 tablet] atenoloL [Atenolol 25mg Tab] 25 mg PO DAILY 03/13/17 10/16/18 donepezil 10 mg tablet 10 mg PO HS 10/07/18 10/16/18 memantine 10 mg tablet 10 mg PO BID tab 10/07/18 10/16/18 Cyanocobalamin (Vitamin B-12) 1,000 mcg PO DAILY 10/11/18 10/16/18 [Vitamin B-12 1000mcg Tablet] Thiamine HCl [Vitamin B-1] 250 mg PO DAILY 10/11/18 10/16/18 lisinopriL [Lisinopril 20mg Tab] 20 mg PO DAILY 10/15/18 10/16/18 Naproxen Sodium [Aleve 220mg Tab] 220 mg PO BID 10/16/18 10/16/18 Previous Rx's Medication Instructions Recorded Carbidopa/Levodopa 1 each PO TID tab 10/18/18 [Carbidopa/Levodopa 25/100mg Tablet] Allergies Allergy/AdvReac Type Severity Reaction Status Date / Time No Known Allergies Allergy Verified 10/14/18 20:24 [facility] History - Hepatitis A Screen Attestation statement:: This patient has been screened for Hepatitis A risk factors. I have reviewed the patient's
[2019-09-29 12:12] VITALS: BP 142/82; PULSE 60; RESP 16; TEMP 36.6; O2SAT 100
[2019-10-13 12:52] LABS: POC Glucose,Bedside 100 (70-110)
== END 2019-09-29 12:19 | disposition home or self-care (01) ==
LOC: ER 12:19
PROVIDERS: Emergency Provider Emergency Medicine; PCP Internal Medicine Adolescent Medicine
DX: F03.90 Unspecified dementia, unspecified severity, without behavioral disturbance, psychotic disturbance, mood disturbance, and anxiety (principal); I10 Essential (primary) hypertension; E78.5 Hyperlipidemia, unspecified; I25.2 Old myocardial infarction; I25.10 Atherosclerotic heart disease of native coronary artery without angina pectoris; Z87.891 Personal history of nicotine dependence
CPT/HCPCS: 82962; 99281

== ENCOUNTER 2019-11-20 03:36 | Inpatient (IN) | payer MEDICARE, MEDICAID, SELFPAY ==
[2019-11-20] VITALS (22 sets, daily range): BP systolic 115–182; BP diastolic 57–95; PULSE 64–99; RESP 12–20; TEMP 36.4–43; O2SAT 86–98; BMI 25.0; BMI 21.3; BMI 22.8
--- NOTE | 2019-11-20 03:37 | CT_ITS ---
PROCEDURE: CT HEAD/BRAIN WO CON CLINICAL INDICATION: fall Head injury with headache/pain, contusion, abrasion or hematoma COMPARISON: CT CT HEAD/BRAIN WO CON from 10/14/2018 TECHNIQUE: Axial images obtained. All CT scans at the facility use one or more dose reduction, viz: automated exposure control, ma/kV adjustment per patient size (including targeted exams where dose is matched to indication, i.e. head), or iterative reconstruction technique. FINDINGS: No midline shift, mass effect, intracranial hemorrhage, hydrocephalus, or extra-axial fluid collection is evident. There is generalized atrophy with hypoattenuation of the periventricular white matter consistent with microangiopathic changes. The calvarium has an unremarkable appearance. No mastoid effusion. No sinus air-fluid level. IMPRESSION: No acute intracranial finding Dictated by: Charbel Carrillo MD 11/20/2019 05:33 Charbel Carrillo MD in [place] 11/20/2019 05:33
--- NOTE | 2019-11-20 03:37 | XR_ITS ---
PROCEDURE: XR CHEST AP CLINICAL HISTORY: fall Posttraumatic pain COMPARISON: CR XR CHEST 2V from 10/11/2018 CR XR CHEST PORTABLE from 10/14/2018 DX XR CHEST 2V from 10/16/2018 FINDINGS: There has been a prior median sternotomy/CABG. Normal heart size. Right hemidiaphragm is elevated with bowel interposition on the right. No lobar consolidation or collapse. There are severe degenerative changes of the left shoulder. Lucency is noted over the left lower hemithorax laterally probably related to skin fold artifact. IMPRESSION: No acute findings. Dictated by: Charbel Carrillo MD 11/20/2019 05:25 Charbel Carrillo MD in [facility] 11/20/2019 05:25
--- NOTE | 2019-11-20 03:37 | CT_ITS ---
PROCEDURE: CT CERVICAL SPINE WO CON CLINICAL INDICATION: fall Neck injury with pain, contusion/abrasion or hematoma, cervical sprain/strain the COMPARISON: No exams were available for comparison TECHNIQUE: Axial images obtained with sagittal and coronal reformats. All CT scans at the facility use one or more dose reduction, viz: automated exposure control, ma/kV adjustment per patient size (including targeted exams where dose is matched to indication, i.e. head), or iterative reconstruction technique. Axial spiral CT scanning performed of the cervical spine beginning at the base of the skull and continuing to the upper T-spine. 3-D multiplanar reconstruction with 3-D manipulation of volumetric data set in image rendering was completed by the radiologist and/or technologist with the supervision of the radiologist on independent workstation. FINDINGS: There is reversal of the cervical lordosis which may be due to patient positioning or muscle spasm. No acute fracture is evident. Multilevel degenerative disc disease is present from C3 to T1. There is anterolisthesis of C3 of 5 mm which may be degenerative in nature. Multi level facet arthrosis is noted with foraminal narrowing. Lung apices are clear. Canal stenosis is present at C4. IMPRESSION: 1. No acute fracture. 2. Cervical kyphosis with multilevel spondylosis as described above. Dictated by: Charbel Carrillo MD 11/20/2019 05:38 Charbel Carrillo MD in [facility] 11/20/2019 05:38
--- NOTE | 2019-11-20 03:37 | XR_ITS ---
PROCEDURE: XR FEMUR LT 2V CLINICAL INDICATION: fall. LT hip pain COMPARISON: CR XR PELVIS 1-2V from 11/20/2019 FINDINGS: There is fracture present through the basicervical/intertrochanteric portion of the left femoral neck with minimal foreshortening of the left femur. Femoral head is in place. There is a total knee prosthesis present. The mid distal aspect of the left femur is unremarkable for acute fracture. IMPRESSION: Fracture of the basicervical/intertrochanteric portion of the left femoral neck with mild foreshortening Dictated by: Charbel Carrillo MD 11/20/2019 05:24 Charbel Carrillo MD in [facility] 11/20/2019 05:24
[2019-11-20 03:53] LABS: Basophils % 0.4 % (0.1-2.0); Eosinophils # 0.1 K/mm3 (0.0-0.4); Eosinophils % 0.6 % (0.1-12.0); Hematocrit 38.5 % (42.0-52.0); Hemoglobin 12.7 g/dL (14.1-18.0); Lymphocytes # 1.4 K/mm3 (0.7-4.5); Lymphocytes % 17.3 % (10-50); Mean Corpuscular Hemoglobin 34.2 pg (27.0-31.2); Mean Corpuscular Volume 103.8 fl (80-94); Mean Platelet Volume 9.4 fl (7.4-10.4); Monocytes # 0.7 K/mm3 (0.1-1.0); Monocytes % 7.9 % (1.7-9.3); Neutrophils # 6.1 K/mm3 (1.8-7.8); Neutrophils % 73.8 % (37.0-80.0); Platelet Count 209 K/mm3 (142-424); Red Blood Count 3.71 M/mm3 (4.60-6.20); White Blood Count 8.2 K/mm3 (4.8-10.8)
[2019-11-20 03:58] LABS: Alanine Aminotransferase 10 U/L (12-78); Albumin Level 4.2 g/dl (3.5-5.0); Albumin/Globulin Ratio 1.4 (1.1-1.8); Alkaline Phosphatase 84 U/L (38-126); Anion Gap 10.9 mEq/L (5-15); Aspartate Amino Transferase 48 U/L (17-59); Bilirubin,Total 1.4 mg/dl (0.2-1.3); Blood Urea Nitrogen 26 mg/dl (9-20); Calcium 9.6 mg/dl (8.4-10.2); Carbon Dioxide 30 mmol/L (22.0-30.0); Chloride 103 mmol/L (98-107); Creatinine Clearance Estimated 59 mL/min (50-200); Estimated Glomerular Filt Rate 93 ml/min (>60); GFR (African American) 112 ML/MIN (>60); Glucose 93 mg/dl (74-100); Potassium 3.9 mmoL/L (3.5-5.1); Sodium 140 mmol/L (136-145); Total Protein,Serum 7.2 g/dl (6.3-8.2)
--- NOTE | 2019-11-20 05:07 | HMH.EDFALL ---
ED Disposition Clinical Impression: Parkinsons disease, S/P CABG x 6 Hip fracture Qualifiers: Encounter type: initial encounter Fracture type: closed Laterality: left Qualified Code(s): S72.002A - Fracture of unspecified part of neck of left femur, initial encounter for closed fracture Dementia Qualifiers: Dementia type: unspecified type Dementia behavioral disturbance: without behavioral disturbance Qualified Code(s): F03.90 - Unspecified dementia without behavioral disturbance Disposition: Admitted As Inpatient Condition on Discharge: Fair - Critical Care Critical Care Time: No Attestation: On 11/20/19, the high probability of a clinically significant, sudden or life threatening deterioration of the following system(s) required my full and direct attention, intervention and personal management. The time I documented below is in addition to time spent performing reported procedures but includes the following listed in this critical care notation. Medical Decision Making - Medical Records Medical records reviewed: Yes: I reviewed the patient's medical records. - Dereck Inquiry Pt receiving controlled substance: No Vital Signs: 11/20/19 03:35 Temperature 97.9 F Temperature Source Oral Pulse Rate [Right] 67 Respiratory Rate 14 Blood Pressure [Right Arm] 182/89 H Blood Pressure Mean [Right Arm] 120 Blood Pressure Source [Right Arm] Automatic Cuff Blood Pressure Position [Right Arm] Supine 02 Sat by Pulse Oximetry 92 L Oxygen Delivery Method Room Air - Lab Data Lab results reviewed: Yes: I reviewed the patient's lab results. Lab Results 11/20/19 03:15: WBC 8.2, RBC 3.71 L, Hgb 12.7 L, Hct 38.5 L, MCV 103.8 H, MCH 34.2 H, MCHC 33.0, RDW 13.0, Plt Count 209, MPV 9.4, Neut % (Auto) 73.8, Lymph % (Auto) 17.3, [place] % (Auto) 7.9, Eos % (Auto) 0.6, Baso % (Auto) 0.4, Neut # (Auto) 6.1, Lymph # (Auto) 1.4, [place] # (Auto) 0.7, Eos # (Auto) 0.1, Baso # (Auto) 0.0 11/20/19 03:15: Sodium 140, Potassium 3.9, Chloride 103, Carbon Dioxide 30, Anion Gap 10.9, BUN 26 H, Creatinine 0.80, Estimated Creat Clear 59, Estimated GFR 93, Est GFR ( Amer) 112, Glucose 93, Calcium 9.6, Total Bilirubin 1.4 H, AST 48, ALT 10 L, Alkaline Phosphatase 84, Total Protein 7.2, Albumin 4.2, Globulin 3.0, Albumin/Globulin Ratio 1.4 Result diagrams: 11/20/19 03:15 11/20/19 03:15 Orders (Tests/Meds): ORDERS Category Date Time Status CT cervical spine wo con Stat Cat Scan 11/20/19 03:[address] head/brain wo con Stat Cat Scan 11/20/19 03:37 Taken XR chest AP Stat Exams 11/20/19 03:37 Taken XR femur LT 2V Stat Exams 11/20/19 03:40 Taken XR pelvis 1-2V Stat Exams 11/20/19 03:37 Taken Covid-19 IgG/IgM ([facility]) Stat Lab 11/20/19 04:53 Ordered - Radiology Data #1 Image(s): Chest, Pelvis, Femur Image Reviewed: Yes I reviewed the patient's radiology image Preliminary Findings: Abnormal (hip fx lt ) - CT Data CT Scan: Head, C-Spine Time Received: 05:[address] Reviewed: Yes: I have viewed the radiologist's interpretation Preliminary Findings: No Fracture Seen Fall HPI - General Chief Complaint: Fall Stated Complaint: fall Time Seen by Provider: 11/20/19 04:00 Mode of Arrival: EMS Source of Information: Patient, EMS, Medical Record Limitations: Altered Mental Status Description of Symptoms (Recalled from ER Triage Doc. by RN): Pt here via EMS after [place] felt the left leg was shortened, no rotation noted or pain with palpation on arrival - History of Present Illness HPI Narrative: fell at [facility] with possible hip injury MD complaint: fall Onset (ago): hour(s) Fall from: walking Fall witnessed: no Place [facility] Loss of consciousness: none Prolonged down time: no Context: tripped/slipped Location of injury - extremities: Left: thigh Severity: moderate Associated symptoms (after fall): denies - Related Data Home Medications Medication Instruction
[2019-11-20 05:46] LABS: Coronavirus 19 IgG Antibody Negative (Negative); Coronavirus 19 IgM Antibody Negative (Negative)
--- NOTE | 2019-11-20 05:51 | PC.NURSE ---
patient up to floor via stretcher.
--- NOTE | 2019-11-20 06:40 | PC.NURSE ---
Applied mitts to bilateral hands at this time due to pt attempting to pull out FC multiple times.
--- NOTE | 2019-11-20 07:37 | P.CONPHA_ITS ---
[facility] Pharmacy VTE Monitoring - Patient Demographics Admission date: 11/20/19 Report Date: 11/20/19 Time: 07:37 Allergies/Adverse Reactions: Patient Allergies risperidone [From Risperdal] Allergy (Verified 11/20/19 03:47) Height: 1.7 m Weight: 65.969 kg Patient Problems: Current Active Problems Dementia (Chronic) Parkinsons disease (Chronic) Hip fracture (Acute) S/P CABG x 6 (Chronic) - VTE Risk Labs: VTE Related Lab Results Hgb 12.7 g/dL (14.1-18.0) L 11/20/19 03:15 Hct 38.5 % (42.0-52.0) L 11/20/19 03:15 Plt Count 209 K/mm3 (142-424) 11/20/19 03:15 BUN 26 mg/dl (9-20) H 11/20/19 03:15 Creatinine 0.80 mg/dl (0.66-1.25) 11/20/19 03:15 Estimated Creat Clear 59 mL/min (50-200) 11/20/19 03:15 Was VTE Risk Assessment Performed: Yes VTE Score: 6 VTE Risk Level: Moderate Risk Clinical Trial Participant: No - Prophylaxis VTE Prophylaxis Ordered?: Yes Types of VTE Prophylaxis: TEDS Knee High
--- NOTE | 2019-11-20 07:43 | HMH.PHAINT ---
CLARIFIED HOME MEDICATION LIST WITH LIST FROM ALF.
--- NOTE | 2019-11-20 08:00 | CA_ITS ---
APPROVED REPORT EXAM: Limited 2D and color flow Echocardiogram Metal Hanging Helper: Helena Roche RDCS Ht: 5 ft 7 in Wt: 160lbs BSA: 1.84 BP: 182/89 mmHg Indications: FX HIP,MURMUR,DEMENTIA,PARKINSONS DISEASE TDS TLS SECONDARY TO DEMENTIA Left Ventricle A limited echocardiogram was performed because of the patient factors and poor acoustic windows. Left atrium is mildly enlarged, left ventricle is normal size, mild concentric left ventricular hypertrophy, visually estimated ejection fraction of 55% with no regional wall motion abnormality. Diastolic parameters were not measured. Right Ventricle Right atrium and right ventricular relatively normal size and function. Aortic Valve Aortic valve is thickened and calcified, there is no aortic stenosis, there is trace aortic insufficiency. Mitral Valve Mitral valve leaflets are minimally thickened, there is mild mitral regurgitation. Tricuspid Valve Tricuspid valve is grossly normal, tricuspid regurgitation jet velocity is inadequate for calculation of the right ventricular systolic pressure. Tricuspid valve leaflets are minimally thickened. Pulmonic Valve Pulmonic valve not well visualized Great Vessels Aortic root is normal size. Pericardium No significant pericardial effusion noted. Conclusion 1. Limited and technically difficult study as described above. 2. Mildly enlarged left atrium, normal left ventricular size, mild concentric left ventricular hypertrophy, visually estimated ejection fraction 55% with no regional wall motion abnormality, diastolic parameters are not measured. 3. Thickened and calcified aortic valve with trace aortic insufficiency, there is no aortic stenosis. 4. Mild mitral and tricuspid regurgitation. 5. No significant pericardial effusion noted. Electronically signed by : Jesús Florentino, 11/20/2019 15:52:56
--- NOTE | 2019-11-20 08:02 | CT_ITS ---
PROCEDURE: CT HIP LT WO CON CLINICAL HISTORY: L hip fx Follow-up fracture COMPARISON: No exams were available for comparison TECHNIQUE: Axial images obtained with sagittal and coronal reformats. All CT scans at the facility use one or more dose reduction, viz: automated exposure control, ma/kV adjustment per patient size (including targeted exams where dose is matched to indication, i.e. head), or iterative reconstruction technique. FINDINGS: There is a complete basicervical fracture involving the left femoral neck. The fracture begins superiorly at the transcervical region and exits inferiorly at the basicervical region. There is mild foreshortening of the fracture site with minimal superior displacement the distal fracture fragment by approximately 8 mm. There is some minimal impaction the bony fragments at the fracture site. The femoral head is located. There is diffuse vascular calcification. Increased soft tissue density is present along the lateral aspect of the hip consistent with hematoma. This area measures approximately 14 x 5 cm. IMPRESSION: Left femoral neck fracture with both basicervical and transcervical component with mild impaction of the fracture fragments with associated left hip hematoma Dictated by: Charbel Carrillo MD 11/20/2019 17:29 Charbel Carrillo MD in [place] 11/20/2019 17:29
--- NOTE | 2019-11-20 10:44 | PC.NURSE ---
Called and spoke with Dr. Street and he stated Dr. Hoover would be in to see pt today sometime today. Have made Dr. Blanco aware of this.
--- NOTE | 2019-11-20 12:27 | HMH.HP ---
*Admission Date: 11/20/19 *Chief complaint: fall, left hip pain *History of present illness: Mr. Abebe is an 79-year-old male with advanced Parkinson's, dementia, hypertension. He resides at [facility] due to his progressive cognitive decline. He was transferred to [facility] ER early this morning after patient fell and developed concern for left hip fracture. On initial assessment, x-rays positive for left hip intertrochanteric fracture. Patient admitted for operative management. Echo performed along with EKG earlier this morning. Preliminary echo finding with an ejection fraction of 55%. Family at bedside. States he has been having worsening confusion over the past few weeks to months. has not seen him since April. [facility] History I have reviewed the patient's past medical history: Yes (Per chart review) Medical History: Reports:: Coronary Artery Disease, Dementia, Hyperlipidemia, Hypertension, Myocardial Infarction Denies:: Cancer, Diabetes Mellitus Type 1, Diabetes Mellitus Type 2 *Have you ever received a pneumonia vaccine?: No *Have you received a flu vaccine this season?: No Other Medical History: Reports: Arthritis, Cataracts Laterality Cases: Right: Arthroscopy Shoulder, Bilateral: Arthroscopy Hip, Total Knee Replacement Other Surgeries: Yes: Cardiac Surgery, Colonoscopy, Open Heart Surgery, Other (oral surgery) - *Social History Smoking Status: Former smoker Tobacco Type: cigarettes # Packs/Day (cigarettes): 1 Alcohol Intake: current Alcohol Intake Frequency:: 0-2 drinks per day *Occupational Status:: disabled Housing: half-way Household Members: spouse *Travel in the last 8 weeks: None Family Hx:: Unable to obtain Review of Systems - Review of Systems Review of systems:: unable to obtain (Unable to obtain from patient due to altered mental status at his baseline) - *Neurologic Denies localized weakness, Denies seizure-like activity Meds Home Medications Medication Instructions Recorded Confirmed Type Simvastatin 20 mg PO HS 03/13/17 11/20/19 History Thiamine HCl [Vitamin B-1] 250 mg PO DAILY 10/11/18 11/20/19 History Naproxen Sodium [Aleve 220mg Tab] 220 mg PO BID PRN 10/16/18 11/20/19 History Acetaminophen [Tylenol 500mg 1,000 mg PO BID 11/20/19 11/20/19 History tablet] Acetaminophen [Tylenol 500mg 500 mg PO Q6 PRN 11/20/19 11/20/19 History tablet] Buspirone HCl [Buspar 10mg 10 mg PO BID 11/20/19 11/20/19 History tablet] Carbidopa/Levodopa 1 each PO TID 11/20/19 11/20/19 History [Carbidopa/Levodopa 25/100mg Tablet] Docusate Sodium [Colace] 100 mg PO BID 11/20/19 11/20/19 History bisacodyL [Dulcolax 10mg Supp] 10 mg RC DIRECTED PRN 11/20/19 11/20/19 History Allergies Allergy/AdvReac Type Severity Reaction Status Date / Time risperidone [From Risperdal] Allergy Verified 11/20/19 03:47 Exam Vital signs and Labs for Last 24 Hours: Temp Pulse Resp BP Pulse Ox 97.9 F 99 H 18 152/94 H 86 L 11/20/19 08:00 11/20/19 08:00 11/20/19 08:00 11/20/19 08:00 11/20/19 08:00 Laboratory Results - last 24 hr 11/20/19 03:15: WBC 8.2, RBC 3.71 L, Hgb 12.7 L, Hct 38.5 L, MCV 103.8 H, MCH 34.2 H, MCHC 33.0, RDW 13.0, Plt Count 209, MPV 9.4, Neut % (Auto) 73.8, Lymph % (Auto) 17.3, [place] % (Auto) 7.9, Eos % (Auto) 0.6, Baso % (Auto) 0.4, Neut # (Auto) 6.1, Lymph # (Auto) 1.4, [place] # (Auto) 0.7, Eos # (Auto) 0.1, Baso # (Auto) 0.0 11/20/19 03:15: Sodium 140, Potassium 3.9, Chloride 103, Carbon Dioxide 30, Anion Gap 10.9, BUN 26 H, Creatinine 0.80, Estimated Creat Clear 59, Estimated GFR 93, Est GFR ( Amer) 112, Glucose 93, Calcium 9.6, Total Bilirubin 1.4 H, AST 48, ALT 10 L, Alkaline Phosphatase 84, Total Protein 7.2, Albumin 4.2, Globulin 3.0, Albumin/Globulin Ratio 1.4 11/20/19 03:15: SARS-CoV-2 IgG Ab (Rapid) Negative, SARS-CoV-2 IgM Ab (Rapid) Negative I & O for Last 24 hours: Intake & Output 11/17/19 11/18/19
--- NOTE | 2019-11-20 13:30 | SW/DCPLANNER ---
Addendum entered by Marla Gavin 11/24/19 13:57: PATIENT HAS NOT DONE WELL OVER THE WEEKEND AND HAS BEEN PUT IN STEPDOWN, FAMILY IS CURRENTLY AT BEDSIDE AND PATIENT MAY CONVERT TO HOSPICE IF HE DOESN'T IMPROVE... I HAVE NOTIFIED STACI AT [facility] TO INFORM HER THAT HE IS NOT COMING BACK TODAY.... Addendum entered by Marla Gavin 11/21/19 10:47: PATIENT MAY DISCHARGE BACK TO HIS GROUP HOME BED OVER THE WEEKEND... I HAVE SENT UPDATES FOR CONTINUITY OF CARE..... Addendum entered by Marla Gavin 11/20/19 13:45: STACI CALLED ME BACK AND SAID MR VERA IS ON A MEDICAID [id number]... Original Note: JORGE ADMITTED TO [facility] WITH A HIP FRACTURE... CURRENTLY IN SURGERY.. PATIENT IS A RESIDENT OF [facility] IN [place] AND IS A [employer].. I HAVE NOTIFIED THE GROUP HOME TO SEE IF THEY ARE GOING TO TAKE HIM BACK POST HOSPITAL STAY... WAITING ON A CALLBACK FROM STACI.
--- NOTE | 2019-11-20 13:44 | HMH.ANESCL ---
[facility] Anesthesia Checklist - Structural Data Admitted From: Inpatient Planned Operative Procedure/s: orif l hip Consent for Planned Operative Procedure(s) Verified: Yes - Airway Assessment C-Spine Mobility Assessed: Yes TMJ Mobility Assessed: Yes Dentition: Poor Dentition - Neurological Assessment Level of Consciousness: Lethargic, Inappropriate - Anesthesia Plan Anesthesia Risk discussed: Yes Anesthesia Plan: Patient unable to respond/answer ASA Class: III Anesthesia Type: MAC w/Spinal [facility] History I have reviewed the patient's past medical history: Yes Medical History: Reports:: Coronary Artery Disease, Dementia, Hyperlipidemia, Hypertension, Myocardial Infarction Denies:: Cancer, Diabetes Mellitus Type 1, Diabetes Mellitus Type 2 *Have you ever received a pneumonia vaccine?: No *Have you received a flu vaccine this season?: No Other Medical History: Reports: Arthritis, Cataracts Anesthesia experience/problems:: none Laterality Cases: Right: Arthroscopy Shoulder, Bilateral: Arthroscopy Hip, Total Knee Replacement Other Surgeries: Yes: Cardiac Surgery, Colonoscopy, Open Heart Surgery, Other (oral surgery) - *Social History Smoking Status: Former smoker Tobacco Type: cigarettes # Packs/Day (cigarettes): 1 Alcohol Intake: current Alcohol Intake Frequency:: 0-2 drinks per day Substance Use Type: unknown *Occupational Status:: disabled Housing: [facility] Household Members: spouse *Travel in the last 8 weeks: None Family Hx:: Unable to obtain
[2019-11-20 14:19] LABS: INR 1.17 (0.9-1.1); Prothrombin Time 12.8 seconds (9.4-11.8)
--- NOTE | 2019-11-20 14:45 | HMH.ORTHOCON ---
*Admission Date: 11/20/19 *Reason for consult:: Fracture neck of femur, left *History of present illness: Mr. Abebe is an 79-year-old male with advanced Parkinson's, dementia, hypertension. He resides at [facility] due to his progressive cognitive decline. Patient has severe dementia and is difficult to communicate with. His family including his and son are by the bedside. Family says he has been having worsening confusion over the last few months. He was transferred to [facility] ER early this morning after patient fell and developed concern for left hip fracture. Imaging including x-rays and noncontrast CT scan of the left hip confirmed a basicervical fracture neck of femur. Patient is admitted for further management of the fracture. His says he had very limited mobility prior to the injury and was only taking few steps with help. She says he was having frequent falls over the last few weeks. No history of any other injuries including head injury, neck injury, back injury, chest or abdominal injury or upper extremity injury. No history of any dizziness, headache, chest or neck pain. No history of any loss of consciousness, chest pain and shortness of breath. [facility] History I have reviewed the patient's past medical history: Yes Medical History: Reports:: Coronary Artery Disease, Dementia, Hyperlipidemia, Hypertension, Myocardial Infarction Denies:: Cancer, Diabetes Mellitus Type 1, Diabetes Mellitus Type 2 *Have you ever received a pneumonia vaccine?: No *Have you received a flu vaccine this season?: No Other Medical History: Reports: Arthritis, Cataracts Anesthesia experience/problems:: none Laterality Cases: Right: Arthroscopy Shoulder, Bilateral: Arthroscopy Hip, Total Knee Replacement Other Surgeries: Yes: Cardiac Surgery, Colonoscopy, Open Heart Surgery, Other (oral surgery) - *Social History Smoking Status: Former smoker Tobacco Type: cigarettes # Packs/Day (cigarettes): 1 Alcohol Intake: current Alcohol Intake Frequency:: 0-2 drinks per day Substance Use Type: unknown *Occupational Status:: disabled Housing: half-way Household Members: spouse *Travel in the last 8 weeks: None Family Hx:: Unable to obtain Review of Systems - Review of Systems Review of systems:: unable to obtain - *Neurologic Denies localized weakness, Denies seizure-like activity Meds Home Medications Medication Instructions Recorded Confirmed Type Simvastatin 20 mg PO HS 03/13/17 11/20/19 History Thiamine HCl [Vitamin B-1] 250 mg PO DAILY 10/11/18 11/20/19 History Naproxen Sodium [Aleve 220mg Tab] 220 mg PO BID PRN 10/16/18 11/20/19 History Acetaminophen [Tylenol 500mg 1,000 mg PO BID 11/20/19 11/20/19 History tablet] Acetaminophen [Tylenol 500mg 500 mg PO Q6 PRN 11/20/19 11/20/19 History tablet] Buspirone HCl [Buspar 10mg 10 mg PO BID 11/20/19 11/20/19 History tablet] Carbidopa/Levodopa 1 each PO TID 11/20/19 11/20/19 History [Carbidopa/Levodopa 25/100mg Tablet] Docusate Sodium [Colace] 100 mg PO BID 11/20/19 11/20/19 History bisacodyL [Dulcolax 10mg Supp] 10 mg RC DIRECTED PRN 11/20/19 11/20/19 History Allergies Allergy/AdvReac Type Severity Reaction Status Date / Time risperidone [From Risperdal] Allergy Verified 11/20/19 03:47 Exam Vital signs and Labs for Last 24 Hours: Temp Pulse Resp BP Pulse Ox 97.9 F 99 H 18 152/94 H 86 L 11/20/19 08:00 11/20/19 08:00 11/20/19 08:00 11/20/19 08:00 11/20/19 08:00 Laboratory Results - last 24 hr 11/20/19 03:15: WBC 8.2, RBC 3.71 L, Hgb 12.7 L, Hct 38.5 L, MCV 103.8 H, MCH 34.2 H, MCHC 33.0, RDW 13.0, Plt Count 209, MPV 9.4, Neut % (Auto) 73.8, Lymph % (Auto) 17.3, [place] % (Auto) 7.9, Eos % (Auto) 0.6, Baso % (Auto) 0.4, Neut # (Auto) 6.1, Lymph # (Auto) 1.4, [place] # (Auto) 0.7, Eos # (Auto) 0.1, Baso # (Auto) 0.0 11/20/19 03:15: Sodium 140, Potassium 3.9, Chloride 103, Carbon Dioxide 30, Anion
--- NOTE | 2019-11-20 14:53 | PC.NURSE ---
Pt down for surgery approx 1400
--- NOTE | 2019-11-20 18:02 | PC.NURSE ---
Pt remains off floor at this time in surgery.
--- NOTE | 2019-11-20 18:42 | P.PN_ITS ---
[facility] Anesthesia Record Part I Intake, IV Amount: 2,500 Estimated blood loss (mL): 800 Urine output (mL): 200 Blood Pressure: 115/70 SaO2: 98 Pulse Rate: 86 Respiratory Rate: 12 Temperature: 98.2 F Patient is:: Drowsy, Stable Stable to PACU at:: 18:35
--- NOTE | 2019-11-20 18:48 | XR_ITS ---
PROCEDURE: XR HIP LT 2-3V W/PELVIS CLINICAL INDICATION: s/p pippa Follow-up surgery COMPARISON: CR XR PELVIS 1-2V from 11/20/2019 FINDINGS: Status post left hip hemiarthroplasty. There is good alignment with no evidence of complications. Postsurgical gas noted. There is a Mir catheter present. IMPRESSION: Status post left hip hemiarthroplasty. There is good alignment with no evidence of complications. Dictated by: Charbel Carrillo MD 11/21/2019 04:53 Charbel Carrillo MD in [place] 11/21/2019 04:53
--- NOTE | 2019-11-20 18:52 | HMH.OPNOTE ---
Date of procedure: 11/20/19 Pre-op Diagnosis:: Displaced, intracapsular fracture neck of femur, left hip Post-op Diagnosis:: Same Procedure performed:: Uncemented bipolar hemiarthroplasty, left hip Surgeon:: Julián Blanco MD Cheese Supervisor(s):: Rosmrey Wong AUTO BODY STRAIGHTENER:: Marco Chen Anesthesia: spinal Estimated blood loss (mL): 800 Clinical Note:: Patient is [an 79-year-old male] who sustained a displaced intracapsular fracture neck of left femur following a a fall at the correction. A hemiarthroplasty is indicated to relieve pain and restore function. The surgery is clinically indicated and is the standard of care for this type of fracture. Please refer to my consult note for full details. Operative findings:: Displaced intracapsular femoral neck fracture of the left hip as noted on the preoperative hip imaging. The articular cartilage of the acetabulum is well maintained without evidence of significant degenerative changes. The proximal femur bone quality is good. Operative note:: On the day of the procedure the patient and his family were met on the floor, and a physical examination was performed. Patient has severe dementia and noncommunicable. The operating side and site were marked and initialed by me. I have reviewed the diagnosis, natural history and management options in detail including both the nonsurgical and surgical. Given the nature of the fracture, I have recommended surgery in the form of a hemiarthroplasty of the left hip. I have discussed the procedure, risks and benefits, alternatives, potential complications and expected outcomes with the patient's family. The complications discussed include but are not limited to infection, injury to nerves and blood vessels, DVT and PE, femur fracture, limb length inequality, dislocation, implant failure, loosening, acetabular wear, osteolysis, periprosthetic femur fracture, heterotopic ossification, abductor weakness and a limp, incomplete relief of pain, incomplete return of function or motion, likely need for further surgery in future including revision, anesthetic/medical complications including heart attack, stroke, transfusion reactions and even . We discussed how any of these events can be devastating. We have discussed nonsurgical alternatives as well. We also discussed the postoperative course including the rehab and physical therapy required. Family understood the risks, agreed to proceed with surgery, agreed to consent for the surgery and no guarantees or assurances were given or implied. The patient was brought to the operating room and a spinal anesthesia was administered by the corporate meeting planner. The patient was then transferred onto the operating table and positioned in the right lateral decubitus position with the left hip facing upwards. All the bony prominences were well-padded. The left lower extremity was then prepped and draped in the usual sterile fashion. The entire operative team used isolation suits and room traffic was controlled. The surgical landmarks and incision was marked over the skin with a marking pen. Ioban sterile drape was used to cover the operative site and isolate the perineum completely from the operative field. Administration of prophylactic IV antibiotics (Ancef and vancomycin) was confirmed with the corporate meeting planner. A preprocedure timeout was performed as per hospital protocol. A posterior approach was used to the hip joint. An electrocautery was used for hemostasis. The skin incision was made centering over the posterior border of the greater trochanter extending posteriorly in a curvilinear fashion across the buttock. The dissection was carried through subcutaneous tissue down to the fascia lucien. The fascia lucien and gluteus fascia were split and a Charnley retractor was placed. The trochanteric bursa was then removed with blunt dissection. The sciatic nerve was identified and kept out of the harm's way throughout the rest of the procedure. The hip was then inter
--- NOTE | 2019-11-20 18:52 | PC.NURSE ---
Pt still continues to be off floor at this time.
--- NOTE | 2019-11-20 18:54 | PC.NURSE ---
Prior to pt going down for surgery this nurse did order stat pt/inr and also made surgery staff ekg wasnt on chart, called r/t as well, whom stated she would call Maria Guadalupe in surgery. Son went down with pt to surgery.
--- NOTE | 2019-11-20 18:57 | PC.NURSE ---
rad @ bedside getting post-op views
--- NOTE | 2019-11-20 19:10 | PC.NURSE ---
patient up to floor from surgery via stretcher.
--- NOTE | 2019-11-20 19:49 | PC.NURSE ---
Report given to Mj NazarioRN, pt back to floor 190
[2019-11-21] VITALS (20 sets, daily range): BP systolic 96–160; BP diastolic 57–99; PULSE 69–96; RESP 18–32; TEMP 36.4–38.3; O2SAT 93–99; BMI 21.9; BMI 21.8
--- NOTE | 2019-11-21 04:55 | PC.NURSE ---
PT. ALERT TO NAME AND INTERMITTENTLY ANSWERS YES/NO QUESTIONS. BUE NOCTURNIST PHYSICIAN, MOVEMENT AND TEMP EQUAL. RESISTIVE TO CARE WHILE AWAKE. ATTEMPTED TO TX PT. WITH TYLENOL; PT. REFUSED AND SPIT MEDICATION OUT. R HIP SX SITE DSG C/D/I WITH ABDUCTOR PILLOW. CURRENTLY RESTING IN BED WITH EYES CLOSED AT THIS TIME.
[2019-11-21 06:48] LABS: Basophils % 0.1 % (0.1-2.0); Chloride 105 mmol/L (98-107); Eosinophils % 0.3 % (0.1-12.0); Hematocrit 24.5 % (42.0-52.0); Lymphocytes # 0.8 K/mm3 (0.7-4.5); Lymphocytes % 5.6 % (10-50); Mean Corpuscular HGB Conc 32.4 g/dL (31.8-35.4); Mean Corpuscular Hemoglobin 33.6 pg (27.0-31.2); Mean Corpuscular Volume 103.5 fl (80-94); Mean Platelet Volume 10.6 fl (7.4-10.4); Monocytes % 7.3 % (1.7-9.3); Neutrophils # 11.6 K/mm3 (1.8-7.8); Neutrophils % 86.6 % (37.0-80.0); Platelet Count 172 K/mm3 (142-424); Red Blood Count 2.37 M/mm3 (4.60-6.20); Red Cell Distribution Width 12.9 % (11.5-17.5); White Blood Count 13.4 K/mm3 (4.8-10.8)
[2019-11-21 06:49] LABS: Potassium 4.2 mmoL/L (3.5-5.1); Sodium 138 mmol/L (136-145)
[2019-11-21 06:51] LABS: Alanine Aminotransferase 23 U/L (12-78); Anion Gap 10.2 mEq/L (5-15); Aspartate Amino Transferase 47 U/L (17-59); Blood Urea Nitrogen 29 mg/dl (9-20); Carbon Dioxide 27 mmol/L (22.0-30.0); Creatinine Clearance Estimated 52 mL/min (50-200); Estimated Glomerular Filt Rate 93 ml/min (>60); GFR (African American) 112 ML/MIN (>60)
[2019-11-21 06:52] LABS: Albumin Level 3.1 g/dl (3.5-5.0); Albumin/Globulin Ratio 1.3 (1.1-1.8); Alkaline Phosphatase 40 U/L (38-126); Bilirubin,Total 1.4 mg/dl (0.2-1.3); Globulin 2.3 g/dL (1.3-3.2); Glucose 132 mg/dl (74-100); Total Protein,Serum 5.4 g/dl (6.3-8.2)
[2019-11-21 07:07] LABS: MANUAL DIFFERENTIAL MANUAL DIFFERENTIAL (MANUAL DIFF)
--- NOTE | 2019-11-21 07:40 | HMH.ACPN2 ---
Internal Medicine - PN: Subj *Date: 11/21/19 *Time: 08:51 Interval history: 79-year-old male status post left hip fracture, had surgery last night. Tolerated well. Blood levels have dropped this morning however. Patient also with elevated temperature though not frankly febrile. Remains mildly hypertensive today. Other vitals within normal range. Exam Vital signs and Labs for Last 24 Hours: Temp Pulse Resp BP Pulse Ox 100.2 F H 80 20 160/99 H 96 11/21/19 04:00 11/21/19 04:00 11/21/19 04:00 11/21/19 04:00 11/21/19 04:00 Laboratory Results - last 24 hr 11/20/19 12:50: Blood Type A Positive, Antibody Screen Negative, Crossmatch (AHG) See Detail 11/20/19 13:55: PT 12.8 H, INR 1.17 H 11/21/19 06:25: WBC 13.4 H D, RBC 2.37 L D, Hgb 8.0 L, Hct 24.5 L, MCV 103.5 H, MCH 33.6 H, MCHC 32.4, RDW 12.9, Plt Count 172, MPV 10.6 H, Neut % (Auto) 86.6 H, Lymph % (Auto) 5.6 L, [place] % (Auto) 7.3, Eos % (Auto) 0.3, Baso % (Auto) 0.1, Neut # (Auto) 11.6 H, Lymph # (Auto) 0.8, [place] # (Auto) 1.0, Eos # (Auto) 0.0, Baso # (Auto) 0.0 11/21/19 06:25: Sodium 138, Potassium 4.2, Chloride 105, Carbon Dioxide 27, Anion Gap 10.2, BUN 29 H, Creatinine 0.80, Estimated Creat Clear 52, Estimated GFR 93, Est GFR ( Amer) 112, Glucose 132 H, Total Bilirubin 1.4 H, AST 47, ALT 23 D, Alkaline Phosphatase 40, Total Protein 5.4 L, Albumin 3.1 L D, Globulin 2.3, Albumin/Globulin Ratio 1.3 I & O for Last 24 hours: Intake & Output 11/18/19 11/19/19 11/20/19 11/21/19 23:59 23:59 23:59 23:59 Intake Total 2550 / 2550 944 / 944 Output Total 625 / 625 160 / 160 Balance 1925 / 1925 784 / 784 Weight 65.969 kg 63.305 kg Narrative: - Constitutional mild distress, thin - *Routine HEENT Exam Head: Present: normocephalic Eye: Present: EOMI, PERRL ENT: Present: mucous membranes moist Comments: Bitemporal wasting - *Routine Neck Exam Present: supple. Absent: lymphadenopathy - *Routine Respiratory Exam Present: CTA bilaterally - *Routine Cardiovascular Exam Present: RRR, murmur (Systolic). Absent: rubs - *Routine Abdominal Exam Present: soft, normoactive bowel sounds. Absent: tenderness - *Routine Extremities Exam Absent: cyanosis, clubbing, edema, Left leg with surgical wound overlying left hip. Leg length equal bilaterally, neurovascularly intact in feet - *Routine Skin Exam Present: warm. Absent: rash - *Routine Neurological Exam Present: altered mental status, tremors; no verbal response to questions. Patient withdraws from pain Assessment and Plan (1) Hip fracture Status: Acute Qualifiers: Encounter type: initial encounter Fracture type: closed Laterality: left Qualified Code(s): S72.002A - Fracture of unspecified part of neck of left femur, initial encounter for closed fracture Category: Medical Code(s): S72.009A - Fracture of unspecified part of neck of unspecified femur, initial encounter for closed fracture (2) Dementia Status: Chronic Qualifiers: Dementia type: unspecified type Dementia behavioral disturbance: without behavioral disturbance Qualified Code(s): F03.90 - Unspecified dementia without behavioral disturbance Category: Medical Code(s): F03.90 - Unspecified dementia without behavioral disturbance (3) Parkinsons disease Status: Chronic Category: Medical Code(s): G20 - Parkinson's disease (4) S/P CABG x 6 Status: Chronic Category: Surgical Code(s): Z95.1 - Presence of aortocoronary bypass graft (5) HHD (hypertensive heart disease) Status: Chronic Qualifiers: Heart failure presence: without heart failure Qualified Code(s): I11.9 - Hypertensive heart disease without heart failure Category: Medical Code(s): I11.9 - Hypertensive heart disease without heart failure (6) HLD (hyperlipidemia) Status: Chronic Qualifiers: Hyperlipidemia type: mixed hyperlipidemia Qualified Code(s): E78.2 - Mixed hyperlipidemia Categ
[2019-11-21 08:08] LABS: Calcium 8.4 mg/dl (8.4-10.2)
[2019-11-21 08:29] LABS: Microscopic, Urine URINE MICROSCOPIC (MICROSCOPIC)
[2019-11-21 08:41] LABS: Lymphocytes % 6 % (10-50); Macrocytosis 1+; Monocytes % 3 % (2-9); Neutrophils % 91 % (42-76); Platelet Estimate Normal; Total Cells Counted 100
[2019-11-21 08:44] LABS: Appearance,Urine CLOUDY (Clear); Blood, Urine 3+ (Negative); Color,Urine DK YELLOW (Yellow); Glucose,Urine (UA) Negative (Negative); Ketones,Urine Negative (Negative); Leukocyte Esterase,Urine TRACE (Negative); Nitrate,Urine Negative (Negative); Protein,Urine 2+ (Negative); Specific Gravity, Urine >= 1.030 (1.005-1.030); Urobilinogen,Urine 0.2 EU/dl (0.2)
[2019-11-21 09:03] LABS: Amorphous Sediment,Urine 1+ /lpf; Bacteria,Urine 2+ /lpf; Bilirubin,Urine Negative (Negative); WBC,Urine TNTC #/hpf (0-3)
--- NOTE | 2019-11-21 09:12 | PC.NURSE ---
calls placed to both family memebrs listed in chart to obtain consent to admin blood. neither answered. awaiting call back and will cont. to try to reach family.
--- NOTE | 2019-11-21 09:47 | DIET.NUTRFU ---
Addendum entered by Kristina Landry 11/21/19 09:50: soft diet modifications made at this time. Original Note: Nursing reported swallowing difficulty with medicine. Per [facility], pt is on a regular diet there. Swallowing eval has been ordered, will monitor their recommendations and provide appropriate medical nutrition therapy. Malnutrition assessment to be completed today as well.
--- NOTE | 2019-11-21 10:57 | PC.NURSE ---
Addendum entered by Rosmery Lo RN 11/21/19 11:02: skin tear noted by Andrew Al RN to right knee. 1cm x 2cm. no depth noted. red in color. Original Note:
--- NOTE | 2019-11-21 10:59 | PC.NURSE ---
Addendum entered by Rosmery Lo RN 11/21/19 11:03: healed scabs x 3 noted to left elbow. brown in color. 1cm x 2 cm. 0.5cm x 1 cm Original Note:
--- NOTE | 2019-11-21 11:01 | PC.NURSE ---
Photos uploaded at this time were obtained by Edyta Al RN during skin assessment on 11/19
--- NOTE | 2019-11-21 11:22 | HMH.OTEV ---
OT Inpatient Evaluation Rehab OT IP Evaluation Start: 11/20/19 19:38 Freq: ONCE Status: Complete Protocol: Document 11/21/19 11:15 JINACARMEN (Rec: 11/21/19 11:22 JORDON [id number]) Rehab OT IP Assessment Subjective History 79 year old male who is resident at half-way facility of [facility]. Patient recently had a fall at the half-way resulted in L hip intertrochanteric fx. Patient underwent uncemented bipolar hemiarthroplasty of L hip on 11/20/19. PMH: Parkinson 's, dementia and HTN. Subjective Patient was non verbal during evaluation. Nursing stated that patient will mumble at times. Objective Upper Extremity Gross ROM WFL Bed Mobility bed mobility - supine/sit Assist Level Maximum x 1 (75% assist) Transfer Training Sit/Stand Transfer,Sit/Stand/ Step Transfer Assist Level Moderate x 2 (50% assist) Chair Transfer Ability Moderate x 2 (50% assist) Chair Transfer Technique Stand Step Pivot Chair Transfer Assistive Devices None Feeding Ability Total Assistance Lower Body Dressing Ability Unable/Dependant Upper Body Dressing Ability Unable/Dependant Bathing Ability Total Dependance Performing Toilet Hygiene Ability Unable/Dependant Overall Commode/Toilet Transfer Ability Total Dependance Oral Care Ability Dependent/Unable decrease in endurance Yes Rehab OT IP prob,goals,plan Problems Date of Evaluation: 11/21/19 OT IP Problems Bed Mobility,Transfers,Balance ,Self care,Safety Rehab Potential Rehab Potential Good Equipment Needs Assistive Devices None / NA Plan OT intervention Plan Bed Mobility,Transfers,Balance ,Self care,Safety,Therapeutic Exercise OT Plan Frequency Daily Duration LOS Discharge Goals Bed Mobility Ability Assistance x1 Sit to Stand Chair Transfer Ability Moderate x 2 (50% assist), Maximum x 1 (75% assist) Chair Transfer Ability Moderate x 1 (50% assist) Chair Transfer Technique Stand Step Pivot Chair Transfer Assistive Devices Standard Walker Self care skills uses utensils to feed self Feeding Ability Needs Supervision Lower Body Felix
--- NOTE | 2019-11-21 11:24 | HMH.PTEV ---
Physical Therapy Evaluation Rehab PT IP Evaluation Start: 11/20/19 19:38 Freq: ONCE Status: Active Protocol: Document 11/21/19 11:19 PHORNE (Rec: 11/21/19 11:23 PHORNE [id number]) Subjective/History History History 79 yowm adm to [facility] after fall at [facility] with L hip fx, now S/P L hip hemiarthrosis. Baseline pt is a [facility] resident with parkinson's disease and dementia. Limited mobility prior to adm using w/ c for primary mobility at [facility] per son. Subjective Subjective Pt not well oriented this am and unable to answer any question. No outward signs of pain at this time. Rehab PT IP Eval Objective Appearance Patient Behavior Confused Difficulty following instructions moderate Speech Pattern No Speech Ambulation Patient Able to Ambulate Yes Ambulation Observation IP General Gait Pattern Observation Antalgic Gait,Shuffling Step, Decrease Weight Bear (L) Ambulation Distance (feet) 2 Ambulation Assistive Device None Ambulation Ability Maximum x 2 (75% assist) Balance Ability to Arise Unable Sitting Balance Leans or slides in chair Standing Balance Unsteady Dynamic Sitting Balance Ability Poor Dynamic Standing Balance Ability Poor Transfers Bed Transfer Ability Maximum x 1 (75% assist) Chair Transfer Ability Maximum x 1 (75% assist) Sit to Stand Bed Transfer Ability Maximum x 1 (75% assist) Sit to Stand Chair Transfer Ability Maximum x 1 (75% assist) ROM All Extremities PT ROM Status WFL MMT All Extremities PT MMT ABN Abnormal MMT Grade grossly 2/5 Rehab PT IP prob,goals,plan Problems Date of Evaluation: 11/21/19 PT IP Problems Bed Mobility,Transfers,Gait Rehab Potential Rehab Potential Fair Plan PT Intervention Plan Bed Mobility,Transfers,Gait, Balance,Therapeutic Exercise PT Plan Frequency BID Duration LOS Discharge Goals Bed Transfer Ability Moderate x 2 (50% assist) Sit to Stand Chair Transfer Ability Moderate x 2 (50% assist) Ambulation Assistive Device Rolling Walker Ambulation Distance (feet) 4 Discharge Plan PT Discharge Plan Pt is most appropriate to return to [facility] once medically stab
--- NOTE | 2019-11-21 12:27 | PC.NURSE ---
Addendum entered by April Huang RN 11/21/19 18:30: later this shift, pt mumbled yes and no when asked if we could turn him and change his brief. pt did swallow thickened water, delayed swallow but did not cough. pt has had 3 unmeasured briefs this shift of urine. two of which were pretty full. Original Note: family voiced concerns regarding pt not at baseline and wondering if pt had a stroke. myself, and Sirena Guillen RN explained to son pt UTI, Anesthesia last night, and dementia sometimes it can take a little bit for pt to return to baseline. md fortune is aware and stated he did not notice any deficits this morning when he rounded on pt this morning, stated we did not either and that pt done really well getting out of bed with PT. dr. fortune stated if family wanted a CT to be obtained then we could but Son stated he was not aware of the UTI and wants to hold off on any unnecessary testing at this time.
--- NOTE | 2019-11-21 12:37 | DIET.NUTRFU ---
Nutrition consult completed, pt with severe protein calorie malnutrition rt Dementia/cognitive decline. Protein supplementation TID plus ensure added to diet order. Pt unable to self feed at this time, monitoring mental status and intakes, and awaiting speech recs. Discussed pt's nutritional needs/care with family at bedside and encouraged to follow up with questions/concerns post dc.
[2019-11-21 14:02] LABS: Hematocrit 28.2 % (42.0-52.0)
[2019-11-21 14:05] LABS: Hemoglobin 9.1 g/dL (14.1-18.0)
--- NOTE | 2019-11-21 14:14 | P.PN_ITS ---
[facility] Anesthesia Record Part II Discharge Time: 19:05 Destination: floor PACU nurse assessment reviewed?: Yes Patient Condition:: Good Anesthesia Complications:: None Swallowing reflex intact?: Yes Cyanosis?: No Blood Pressure: 130/57 Pulse Rate: 71 Temperature: 98.7 F Mental Status: Alert & Oriented Pain level:: 0 Nausea and/or vomitting:: None Intake, IV Amount: 2,500
--- NOTE | 2019-11-21 14:43 | HMH.ORTHPN ---
Subjective Date: 11/21/19 Time: 14:15 Principal diagnosis: Status post hemiarthroplasty, left hip Interval history: Patient is status post left hip bipolar hemiarthroplasty post op day #1. Patient is lying down in the bed. His son by the bedside. Patient has severe dementia and noncommunicative. No history of any nausea or vomiting. Postoperatively his H&H is low and had 1 unit of packed cell transfusion today. Patient was seen by physical therapy this morning and was transferred to the bed where he sat for a while. PN: Obj Ex Vital signs: Temp Pulse Resp BP Pulse Ox 98.7 F 71 19 130/57 L 99 11/21/19 14:16 11/21/19 14:16 11/21/19 13:30 11/21/19 14:16 11/21/19 13:30 Narrative: Laboratory Results - last 48 hr 11/20/19 11/20/19 11/20/19 03:15 03:15 03:15 WBC 8.2 RBC 3.71 L Hgb 12.7 L Hct 38.5 L MCV 103.8 H MCH 34.2 H MCHC 33.0 RDW 13.0 Plt Count 209 MPV 9.4 Neut % (Auto) 73.8 Lymph % (Auto) 17.3 Garvin % (Auto) 7.9 Eos % (Auto) 0.6 Baso % (Auto) 0.4 Neut # (Auto) 6.1 Lymph # (Auto) 1.4 Garvin # (Auto) 0.7 Eos # (Auto) 0.1 Baso # (Auto) 0.0 Total Counted Neutrophils % (Manual) Lymphocytes % (Manual) Monocytes % (Manual) Platelet Estimate Macrocytosis PT INR Sodium 140 Potassium 3.9 Chloride 103 Carbon Dioxide 30 Anion Gap 10.9 BUN 26 H Creatinine 0.80 Estimated Creat Clear 59 Estimated GFR 93 Est GFR ( Amer) 112 Glucose 93 Calcium 9.6 Total Bilirubin 1.4 H AST 48 ALT 10 L Alkaline Phosphatase 84 Total Protein 7.2 Albumin 4.2 Globulin 3.0 Albumin/Globulin Ratio 1.4 Urine Color Urine Appearance Urine pH Ur Specific [place] Urine Protein Urine Glucose (UA) Urine Ketones Urine Blood Urine Nitrate Urine Bilirubin Urine Urobilinogen Ur Leukocyte Esterase Urine RBC Urine WBC Ur Squamous Epith Cells Amorphous Sediment Urine Bacteria SARS-CoV-2 IgG Ab (Rapid) Negative SARS-CoV-2 IgM Ab (Rapid) Negative Blood Type Blood Type Confirm Antibody Screen Crossmatch ([facility]) 11/20/19 11/20/19 11/21/19 12:50 13:55 06:25 WBC 13.4 H D RBC 2.37 L D Hgb 8.0 L Hct 24.5 L MCV 103.5 H MCH 33.6 H MCHC 32.4 RDW 12.9 Plt Count 172 MPV 10.6 H Neut % (Auto) 86.6 H Lymph % (Auto) 5.6 L Garvin % (Auto) 7.3 Eos % (Auto) 0.3 Baso % (Auto) 0.1 Neut # (Auto) 11.6 H Lymph # (Auto) 0.8 Garvin # (Auto) 1.0 Eos # (Auto) 0.0 Baso # (Auto) 0.0 Total Counted 100 Neutrophils % (Manual) 91 H Lymphocytes % (Manual) 6 L Monocytes % (Manual) 3 Platelet Estimate Normal Macrocytosis 1+ PT 12.8 H INR 1.17 H Sodium Potassium Chloride Carbon Dioxide Anion Gap BUN Creatinine Estimated Creat Clear Estimated GFR Est GFR ( Amer) Glucose Calcium Total Bilirubin AST ALT Alkaline Phosphatase Total Protein Albumin Globulin Albumin/Globulin Ratio Urine Color Urine Appearance Urine pH Ur Specific [place] Urine Protein Urine Glucose (UA) Urine Ketones Urine Blood Urine Nitrate Urine Bilirubin Urine Urobilinogen Ur Leukocyte Esterase Urine RBC Urine WBC Ur Squamous Epith Cells Amorphous Sediment Urine Bacteria SARS-CoV-2 IgG Ab (Rapid) SARS-CoV-2 IgM Ab (Rapid) Blood Type A Positive Blood Type Confirm Antibody Screen Negative Crossmatch ([facility]) See Detail 11/21/19 11/21/19 11/21/19 06:25 08:20 08:30 WBC RBC Hgb Hct MCV MCH MCHC RDW Plt Count MPV Neut % (Auto) Lymph % (Auto) Garvin % (Auto) Eos % (Auto) Baso % (Auto) Neut # (Auto) Lymph # (Auto) Garvin # (Auto) Eos # (Auto) Baso # (Auto)
--- NOTE | 2019-11-21 14:43 | HMH.SLDYSPHA ---
Speech & Language Evaluation Speech/Language Dysphagia Evaluation Start: 11/21/19 14:37 Freq: ONCE Status: Active Protocol: Document 11/21/19 11:30 GUSTAVO (Rec: 11/21/19 14:43 GUSTAVO [id number]) Dysphagia Assess/Goals/Plan Assessment Date of Evaluation: 11/21/19 Evaluation Type Initial Certification Assessment/Problems Dysphagia- determine least restrictive diet Does Patient Qualify for Service No Qualify/Failure Comment Diet could not be determined at this time due to decreased alertness level Recommendations PHYSICIAN CERTIFICATION: The specified therapy services are required, authorized, and reviewed every 30 days. Diet Recommendations NPO with meals Plan Pt/Guardian verbally ack understanding No: RN Notified of dx/prognosis/goals G -code Required No Speech & Language HPI Language Primary Language Arabic General Information General Current Food Consistancy NPO Dentition Poor Dentition Oxygen Status Nasal Cannula Facial Symmetry Patient Baseline Ability to Follow Directions Poor Communication Ability Severe Impairment Dysphagia:Food Presentation Evaluation Food Type Pureed,Liquid Normal/Thin Liquid Response Pocketing,Multiple swallow attempts,Delayed swallow Jenison Consistency Liquid Response Pocketing,Multiple swallow attempts,Delayed swallow Dysphagia Evaluation Pureed Food Pocketing,Multiple swallow Behavior Response attempts,Delayed swallow Dysphagia Evaluation Summary Mr. Abebe was given the following consistenices: honey thick via spoon, nectar via spoon, thins via straw, and pureed. Mr. Abebe pocketed all consistencies under tongue and had a delayed swallow reflex resulting in multiple swallow attempts. At this time , it is recommended he remain NPO with the exceptions of medications. Patient will be reassessed as alsertness level improves. Stroke Dysphagia Assessment PHYSICIAN CERTIFICATION: I certify the specified therapy services for Francois Abebe JR are required, authorized, and reviewed every 30 days.
[2019-11-22] VITALS (25 sets, daily range): BP systolic 114–149; BP diastolic 55–82; PULSE 82–964; RESP 16–22; TEMP 36.3–38.9; O2SAT 90–992; BMI 22.4
--- NOTE | 2019-11-22 03:48 | PC.NURSE ---
Pt has slept at intervals, but will wake for small periods. Has c/o pain this shift. Medicated per apr. Pt repositioned. Does not tolerate well. DSG to (L) hip is C/D/I. No drainage noted. Abductor pillow remains in place. Scd on RLE. Pt is incontinent of bowel and bladder. Has had 2 incontinent voids and BMs thus far. Has remained on RA. VS have remained stable. Has remained afebrile. Lungs are CTA. BS active. Pt administered meds with applesauce and honey thickened liquid. Swallowing is delayed. No cough noted afterwards. Call light within reach. Safety measures in place. Will continue to monitor.
[2019-11-22 07:01] LABS: Basophils % 0.2 % (0.1-2.0); Eosinophils % 0.2 % (0.1-12.0); Lymphocytes # 0.8 K/mm3 (0.7-4.5); Lymphocytes % 6.2 % (10-50); Mean Corpuscular HGB Conc 32.6 g/dL (31.8-35.4); Mean Corpuscular Hemoglobin 32.7 pg (27.0-31.2); Mean Corpuscular Volume 100.4 fl (80-94); Mean Platelet Volume 10.6 fl (7.4-10.4); Monocytes # 0.8 K/mm3 (0.1-1.0); Monocytes % 6.5 % (1.7-9.3); Neutrophils # 10.8 K/mm3 (1.8-7.8); Neutrophils % 86.9 % (37.0-80.0); Platelet Count 157 K/mm3 (142-424); Red Cell Distribution Width 14.7 % (11.5-17.5); White Blood Count 12.4 K/mm3 (4.8-10.8)
[2019-11-22 07:03] LABS: Hematocrit 23.1 % (42.0-52.0); Hemoglobin 7.5 g/dL (14.1-18.0)
[2019-11-22 07:04] LABS: MANUAL DIFFERENTIAL MANUAL DIFFERENTIAL (MANUAL DIFF)
[2019-11-22 07:10] LABS: Chloride 108 mmol/L (98-107)
[2019-11-22 07:11] LABS: Potassium 3.6 mmoL/L (3.5-5.1); Sodium 140 mmol/L (136-145)
[2019-11-22 07:13] LABS: Alanine Aminotransferase 10 U/L (12-78); Aspartate Amino Transferase 52 U/L (17-59); Blood Urea Nitrogen 33 mg/dl (9-20); Creatinine Clearance Estimated 53 mL/min (50-200); Estimated Glomerular Filt Rate 93 ml/min (>60); GFR (African American) 112 ML/MIN (>60)
[2019-11-22 07:14] LABS: Albumin Level 3.1 g/dl (3.5-5.0); Albumin/Globulin Ratio 1.2 (1.1-1.8); Alkaline Phosphatase 43 U/L (38-126); Anion Gap 8.6 mEq/L (5-15); Bilirubin,Total 0.9 mg/dl (0.2-1.3); Calcium 8.5 mg/dl (8.4-10.2); Carbon Dioxide 27 mmol/L (22.0-30.0); Globulin 2.5 g/dL (1.3-3.2); Glucose 107 mg/dl (74-100); Total Protein,Serum 5.6 g/dl (6.3-8.2)
--- NOTE | 2019-11-22 07:20 | PC.NURSE ---
notified of H&H of 7.5, 23.1. Transfuse 2 units now.
--- NOTE | 2019-11-22 08:27 | HMH.ACPN2 ---
Internal Medicine - PN: Subj *Date: 11/22/19 *Time: 09:52 Interval history: Pt had no acute events overnight. Has made good urine and had a BM. Remains afebrile. pain managed with PRN morphine. Follow instructions this morning with squeezing my hand on command. Otherwise hemodynamically stable. Physical therapy worked with patient yesterday, he was able to stand and transfer to bedside chair. Speech assessed patient yesterday, difficulty following directions for them. While he had delayed swallow and did not frankly aspirate during exam, there is concerned that he has potential for aspiration. At this time has honey thick liquids predominantly for medications. Labs this morning significant for recurrent anemia. Plan to transfuse 2 units today. No family at bedside on exam Exam Vital signs and Labs for Last 24 Hours: Temp Pulse Resp BP Pulse Ox 98.1 F 85 20 133/82 90 L 11/22/19 03:50 11/22/19 03:50 11/22/19 03:50 11/22/19 03:50 11/22/19 07:57 Laboratory Results - last 24 hr 11/20/19 12:50: Blood Type A Positive, Antibody Screen Negative, Crossmatch ([facility]) See Detail 11/21/19 06:25: Total Counted 100, Neutrophils % (Manual) 91 H, Lymphocytes % (Manual) 6 L, Monocytes % (Manual) 3, Platelet Estimate Normal, Macrocytosis 1+ 11/21/19 08:20: Urine Color Dk yellow, Urine Appearance Cloudy, Urine pH 5.0, Ur Specific [place] >= 1.030, Urine Protein 2+, Urine Glucose (UA) Negative, Urine Ketones Negative, Urine Blood 3+, Urine Nitrate Negative, Urine Bilirubin Negative, Urine Urobilinogen 0.2, Ur Leukocyte Esterase Trace, Urine RBC 3-5, Urine WBC Tntc, Ur Squamous Epith Cells 5-10, Amorphous Sediment 1+, Urine Bacteria 2+ 11/21/19 08:30: Blood Type Confirm A Positive 11/21/19 13:30: Hgb 9.1 L D, Hct 28.2 L 11/22/19 06:15: WBC 12.4 H, RBC 2.30 L, Hgb 7.5 L*, Hct 23.1 L*, MCV 100.4 H, MCH 32.7 H, MCHC 32.6, RDW 14.7, Plt Count 157, MPV 10.6 H, Neut % (Auto) 86.9 H, Lymph % (Auto) 6.2 L, Frio % (Auto) 6.5, Eos % (Auto) 0.2, Baso % (Auto) 0.2, Neut # (Auto) 10.8 H, Lymph # (Auto) 0.8, Frio # (Auto) 0.8, Eos # (Auto) 0.0, Baso # (Auto) 0.0 11/22/19 06:15: Sodium 140, Potassium 3.6, Chloride 108 H, Carbon Dioxide 27, Anion Gap 8.6, BUN 33 H, Creatinine 0.80, Estimated Creat Clear 53, Estimated GFR 93, Est GFR ( Amer) 112, Glucose 107 H, Calcium 8.5, Magnesium 2.0, Total Bilirubin 0.9, AST 52, ALT 10 L D, Alkaline Phosphatase 43, Total Protein 5.6 L, Albumin 3.1 L, Globulin 2.5, Albumin/Globulin Ratio 1.2 I & O for Last 24 hours: Intake & Output 11/19/19 11/20/19 11/21/19 11/22/19 23:59 23:59 23:59 23:59 Intake Total 2550 / 2550 3724 / 3724 2114 Output Total 625 / 625 511 / 511 Balance 1924 / 1924 3213 / 3213 2114 Weight 65.969 kg 63 kg 64.892 kg Microbiology Reports for the Last 24 Hours: Microbiology 11/21/19 08:30 Nasopharyngeal Coronavirus COVID-19 PCR - Final Narrative: - Constitutional No Acute distress, thin, chronically ill appearing - *Routine HEENT Exam Head: Present: normocephalic Eye: Present: EOMI, PERRL ENT: Present: mucous membranes moist Comments: Bitemporal wasting - *Routine Neck Exam Present: supple. Absent: lymphadenopathy - *Routine Respiratory Exam Present: CTA bilaterally - *Routine Cardiovascular Exam Present: RRR, murmur (Systolic). Absent: rubs - *Routine Abdominal Exam Present: soft, normoactive bowel sounds, Non-tender, scaphoid abdomen - *Routine Extremities Exam Absent: cyanosis, clubbing, edema, Left leg with surgical wound overlying left hip, dressing CDI. Leg length equal bilaterally, neurovascularly intact in feet; sarcopenia - *Routine Skin Exam Present: warm. Absent: rash - *Routine Neurological Exam Present: altered mental status, tremors; no verbal response to questions. Patient withdraws from pain Assessment and Plan (1) Hip fracture Status: Acute Qualifiers: Encounter type: initial encounter Fracture type
[2019-11-22 08:58] LABS: Anisocytosis 2+; Hypochromasia 1+; Lymphocytes % 12 % (10-50); Monocytes % 4 % (2-9); Neutrophils % 84 % (42-76); Platelet Estimate Normal; Total Cells Counted 100
--- NOTE | 2019-11-22 10:05 | PC.NURSE ---
INSTRUCTED BY DR. ROGERS VIA FACE TO FACE COMMUNICATION TO HOLD 0900 LOVENOX. PT'S HGB HAS DECREASED FROM YESTERDAY'S LABS AFTER ONE UNIT WAS TRANSFUSED. DR. ROGERS WILL REEVALUATE THE ADMINISTRATION OF 2100 LOVENOX AFTER POST TRANSFUSION H/H LABS ARE AVAILABLE AFTER TRANSFUSION IS COMPLETED TODAY. WILL CONTINUE TO MONITOR.
--- NOTE | 2019-11-22 11:56 | HMH.ORTHPN ---
Subjective Date: 11/22/19 Time: 10:30 Principal diagnosis: Status post hemiarthroplasty, left hip Interval history: The patient is minimally responsive today. He is resting comfortably and recoils with sternal rub. He does not answer questions. This is reportedly his baseline; this is the first time I am seeing him today. He has no drainage to his surgical dressings on his left hip. He is being treated for suspected UTI. Additionally he is on unit #2 of transfused 2 PRBC. PN: Obj Ex Vital signs: Temp Pulse Resp BP Pulse Ox 97.3 F L 93 H 20 147/57 H 93 L 11/22/19 11:36 11/22/19 11:36 11/22/19 11:36 11/22/19 11:36 11/22/19 11:36 - Constitutional no acute distress, thin - Routine HEENT Exam Head: Present: normocephalic Eye: Present: EOMI ENT: Present: mucous membranes moist - Routine Neck Exam Present: trachea midline - Routine Respiratory Exam Absent: respiratory distress, wheezes - Routine Cardiovascular Exam Present: RRR - Routine Abdominal Exam Present: soft - Routine Extremities Exam Comments: L hip dressing c/d/i, no strikethrough dressings removed, underlying incision c/d/i without periwound erythema or drainage; prineo dressing intact moderate periwound ecchymosis, predominantly posterior to wound abduction pillow in place between legs patient does not respond to commands for motor/sensory testing, but does move LLE spontaneously and recoils when turned for dressing change palpable pedal pulses LLE, foot pink/warm with BCR - Routine Skin Exam Present: warm - Routine Neurological Exam Present: altered mental status, moving all extremities, normal tone. 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 (5) HHD (hypertensive heart disease) Status: Chronic (6) HLD (hyperlipidemia) Status: Chronic (7) Hypertension Status: Acute (8) Anemia Status: Acute (9) UTI (urinary tract infection) Status: Acute (10) Severe protein-calorie malnutrition Status: Chronic Assessment and Plan for All Diagnoses:: 79yo M POD #2 s/p L hip hemiarthroplasty -- dressing changed today, may change daily or as needed; bordered gauze dressing -- continue PT/OT as inpatient and when d/c back to SNF; WBAT LLE -- continue posterior hip precautions + abduction pillow -- continue DVT prophy per PCP x6 weeks -- ok to d/c back to SNF from ortho standpoint, when medically appropriate -- f/u with Dr. Blanco in 1-2 weeks after discharge
[2019-11-22 14:23] LABS: Hematocrit 29.9 % (42.0-52.0)
[2019-11-22 14:27] LABS: Hemoglobin 9.8 g/dL (14.1-18.0)
--- NOTE | 2019-11-22 17:37 | PC.NURSE ---
PT HAS BEEN ASLEEP ALL OF SHIFT. PERRLA. PT MOANS AND TRIES TO PUNCH STAFF WHILE PROVIDING CARE BUT INSTANTLY FALLS BACK TO SLEEP. PT TURNED AND MOUTH CARE Q2. 2 UNITS PACKED RBC TRANSFUSED AND POST H/H COMPLETED WITHOUT PROBLEM. H/H IS WNL. PT HAS REFUSED ALL MEALS R/T LETHARY. LUNGS ARE CLEAR AND DIMINISHED THROUGHOUT/ O2 SAT IS 90-95 ON 1LNC. ABDOMEN IS SOFT, FLAT, AND NON-TENDER WITH ACTIVE BS IN ALL QUADS. NO BM THIS SHIFT. PT VOIDS STRONG YELLOW URINE VIA BRIEF. HEART RATE AND RHYTHM IS REGULAR. NO EDEMA NOTED. IVS ARE SECURE, PATENT, AND INFUSING IVF. DAUGHTER AT BEDSIDE THIS AFTERNOON. VSS. NO DISTRESS NOTED. SAFETY MEASURES IN PLACE, WILL CONTINUE TO MONITOR
--- NOTE | 2019-11-22 21:37 | PC.NURSE ---
MD implementation analyst contacted on whether to proceed with Lovenox injection. New orders: hold lovenox tonight. Pt po medications held this shift due to pt not able to swallow medication effectively. Pt was tried with honey thickened liquid and held it in his mouth. Oral care was administered. Will continue to monitor.
--- NOTE | 2019-11-22 22:27 | PC.NURSE ---
Pt noted to be warm to touch. Rectal temp obtained. 102.1. Tylenol 650 mg suppository administered. Pt awake in bed. Had medium BM. Brown and soft. Did not tolerate turn/repositioning well. DSG C/D/I. Abduction pillow in place. Morphine 2 mg IV administered for pain. Will continue to monitor.
[2019-11-23] VITALS (26 sets, daily range): BP systolic 102–159; BP diastolic 57–88; PULSE 95–140; RESP 19–25; TEMP 36.6–37.6; O2SAT 90–100; BMI 21.9
--- NOTE | 2019-11-23 04:25 | PC.NURSE ---
No acute changes since prior assessment. Pt has slept at intervals this shift. He is afebrile at this time. Tylenol administered 1x this shift for fever. DSG to (L) hip is C/D/I. Bruising noted t/o (L) of hip. Pt turned/repositioned. Tolerates poorly. Morphine administered for pain. Pt is currently on 1L O2 NC. Lungs are diminished t/o. Oral care provided as needed. Pt is noted to keep mouth open at all times. PO medications held early in shift due to pt not able to swallow effectively at time. Pt was tried with honey thickened liquid and held it in his mouth. BS active. Pt has had 1 BM this shift. He is incontinent of bowels and urine. Abductor pillow in place. Scd on RLE. Safety measures in place. Will continue to monitor.
[2019-11-23 07:12] LABS: Basophils % 0.2 % (0.1-2.0); Eosinophils % 0.1 % (0.1-12.0); Hemoglobin 9.5 g/dL (14.1-18.0); Lymphocytes # 0.9 K/mm3 (0.7-4.5); Lymphocytes % 6.3 % (10-50); Mean Corpuscular HGB Conc 31.9 g/dL (31.8-35.4); Mean Corpuscular Hemoglobin 31.6 pg (27.0-31.2); Mean Platelet Volume 10.1 fl (7.4-10.4); Monocytes % 7.6 % (1.7-9.3); Neutrophils # 11.6 K/mm3 (1.8-7.8); Neutrophils % 85.8 % (37.0-80.0); Platelet Count 191 K/mm3 (142-424); Red Cell Distribution Width 14.9 % (11.5-17.5); White Blood Count 13.5 K/mm3 (4.8-10.8)
[2019-11-23 07:16] LABS: Hematocrit 29.7 % (42.0-52.0)
[2019-11-23 07:18] LABS: MANUAL DIFFERENTIAL MANUAL DIFFERENTIAL (MANUAL DIFF)
[2019-11-23 07:24] LABS: Alanine Aminotransferase 19 U/L (12-78); Albumin Level 2.9 g/dl (3.5-5.0); Alkaline Phosphatase 56 U/L (38-126); Anion Gap 9.5 mEq/L (5-15); Aspartate Amino Transferase 58 U/L (17-59); Bilirubin,Total 1.2 mg/dl (0.2-1.3); Blood Urea Nitrogen 33 mg/dl (9-20); Calcium 8.6 mg/dl (8.4-10.2); Carbon Dioxide 26 mmol/L (22.0-30.0); Chloride 112 mmol/L (98-107); Creatinine Clearance Estimated 52 mL/min (50-200); Estimated Glomerular Filt Rate 108 ml/min (>60); GFR (African American) 131 ML/MIN (>60); Globulin 2.9 g/dL (1.3-3.2); Glucose 89 mg/dl (74-100); Hypochromasia 1+; Lymphocytes % 25 % (10-50); Macrocytosis 1+; Monocytes % 1 % (2-9); Neutrophils % 74 % (42-76); Platelet Estimate Normal; Potassium 3.5 mmoL/L (3.5-5.1); Rouleaux 2+; Sodium 144 mmol/L (136-145); Total Cells Counted 100; Total Protein,Serum 5.8 g/dl (6.3-8.2)
--- NOTE | 2019-11-23 07:50 | XR_ITS ---
PROCEDURE: XR CHEST PORTABLE Referring Doctor: Mikel Hoover Patient Age:79Y CLINICAL HISTORY: persistent O2 requirement, fever recent fall with left hip fracture Somnolent advanced Parkinson's. Dementia. Hypertension jail patient with progressive cognitive decline COMPARISON: CR XR CHEST PORTABLE from 10/14/2018 DX XR CHEST 2V from 10/16/[address] HIP LT WO CON from 11/20/2019 CR XR CHEST AP from 11/20/2019 FINDINGS: AP portable semi-erect CXR performed today and compared to previous available chest films More pronounced, generous elevation right hemidiaphragm seen today. Slightly more pronounced than previous study. With this the right lung is only down to the anterior 3rd-4th rib with discoid atelectasis at right base above the elevated right hemidiaphragm. Generous loops of gas-filled small and large bowel are seen beneath the elevated right hemidiaphragm and could contribute to such Left lung. There remains to be good inspiration at the left left lung with diaphragm down to the anterior six rib. Accentuation of markings at a left infrahilar towards medial left lung base suspect mainly reflects atelectasis and scarring but it did is a subtle change which may include a developing minimal infiltrate here if the patient is for bowel loop with leukocytosis Features here do not not obscure the descending aorta nor significantly obscure the left diaphragm. Also note there was similar coarsening marking this area on previous studies suggest there are some likely chronic changes underlying here as well. The left upper lung field is clear and stable. Heart is mildly enlarged with prior sternotomy. . Upper normal pulmonary vascularity today There seems to relative diminished prominence of upper lobe pulmonary vascularity and upper lobe markings since 11/20/2019-this may in part reflect today's semi-erect position as well resolution of vascular congestion, in either case with now more normal pulmonary vascularity appearance. No notable pleural effusion, no pneumothorax Chest wall unremarkable. Severe arthritic changes left more than right shoulder again noted IMPRESSION: Right lung: Progressive prominent elevation of the right hemidiaphragm with minimal atelectasis just above this at right lung base. Generous gas-filled loops beneath right hemidiaphragm may in part contribute. Left lung: Suspect subtle infiltrate and atelectasis left infrahilar region extending extending inferiorly to the left lung base retrocardiac region. Correlation required . Mild cardiomegaly CABG. Pulmonary vascularity appears more normal, and less prominent prior 11/20/2019 CXR Dictated by: See Quinteros MD 11/23/2019 10:20 See Quinteros MD in [facility] 11/23/2019 10:20
--- NOTE | 2019-11-23 07:50 | HMH.ACPN2 ---
Internal Medicine - PN: Subj *Date: 11/23/19 *Time: 09:00 Interval history: Fever overnight. tachycardic this morning. persistent O2 requirement. hemoglobin stable on labs this morning. Pt remains altered from his reported baseline. Interaction and ability to follow commands limited. Of note, had noted groaning and mumbling during placement of rectal suppository. No family at bedside this morning on rounds. Exam Vital signs and Labs for Last 24 Hours: Temp Pulse Resp BP Pulse Ox 98 F 132 H 23 127/75 90 L 11/23/19 04:00 11/23/19 04:00 11/23/19 04:00 11/23/19 04:00 11/23/19 04:00 Laboratory Results - last 24 hr 11/20/19 12:50: Blood Type A Positive, Antibody Screen Negative, Crossmatch (AHG) See Detail 11/22/19 06:15: Total Counted 100, Neutrophils % (Manual) 84 H, Lymphocytes % (Manual) 12, Monocytes % (Manual) 4, Platelet Estimate Normal, Hypochromasia 1+, Anisocytosis 2+ 11/22/19 13:55: Hgb 9.8 L D, Hct 29.9 L 11/23/19 06:26: Sodium 144, Potassium 3.5, Chloride 112 H, Carbon Dioxide 26, Anion Gap 9.5, BUN 33 H, Creatinine 0.70, Estimated Creat Clear 52, Estimated GFR 108, Est GFR ( Amer) 131, Glucose 89, Calcium 8.6, Total Bilirubin 1.2, AST 58, ALT 19 D, Alkaline Phosphatase 56, Total Protein 5.8 L, Albumin 2.9 L, Globulin 2.9, Albumin/Globulin Ratio 1.0 L 11/23/19 06:26: WBC 13.5 H, RBC 3.00 L D, Hgb 9.5 L, Hct 29.7 L, MCV 99.0 H, MCH 31.6 H, MCHC 31.9, RDW 14.9, Plt Count 191, MPV 10.1, Neut % (Auto) 85.8 H, Lymph % (Auto) 6.3 L, [place] % (Auto) 7.6, Eos % (Auto) 0.1, Baso % (Auto) 0.2, Neut # (Auto) 11.6 H, Lymph # (Auto) 0.9, [place] # (Auto) 1.0, Eos # (Auto) 0.0, Baso # (Auto) 0.0, Total Counted 100, Neutrophils % (Manual) 74, Lymphocytes % (Manual) 25, Monocytes % (Manual) 1 L, Platelet Estimate Normal, Hypochromasia 1+, Macrocytosis 1+, Rouleaux 2+ I & O for Last 24 hours: Intake & Output 11/20/19 11/21/19 11/22/19 11/23/19 23:59 23:59 23:59 23:59 Intake Total 2550 / 2550 3724 / 3724 2114 / 1700 Output Total 625 / 625 511 / 511 Balance 1924 / 1924 3213 / 3213 2114 Weight 65.969 kg 63 kg 64.892 kg 63.248 kg Microbiology Reports for the Last 24 Hours: Microbiology 11/21/19 08:20 Urine,Catheterized Urine Culture - Preliminary Narrative: - Constitutional No Acute distress, thin, chronically ill appearing - *Routine HEENT Exam Head: Present: normocephalic Eye: Present: EOMI, PERRL ENT: Present: mucous membranes moist Comments: Bitemporal wasting - *Routine Neck Exam Present: supple. Absent: lymphadenopathy - *Routine Respiratory Exam Present: CTA bilaterally - *Routine Cardiovascular Exam Present: RRR, murmur (Systolic). Absent: rubs - *Routine Abdominal Exam Present: soft, normoactive bowel sounds, Non-tender, scaphoid abdomen - *Routine Extremities Exam Absent: cyanosis, clubbing, edema, Left leg with surgical wound overlying left hip, significant bruising dependent to surgical incision, left thigh of larger circumference than the right. No mikhail erythema or streaking. Hematoma is somewhat warm however. Leg length equal bilaterally, neurovascularly intact in feet; sarcopenia - *Routine Skin Exam Present: warm. Absent: rash - *Routine Neurological Exam Present: altered mental status, tremors; no verbal response to questions. Patient withdraws from pain Assessment and Plan (1) Hip fracture Status: Acute Qualifiers: Encounter type: initial encounter Fracture type: closed Laterality: left Qualified Code(s): S72.002A - Fracture of unspecified part of neck of left femur, initial encounter for closed fracture Category: Medical Code(s): S72.009A - Fracture of unspecified part of neck of unspecified femur, initial encounter for closed fracture (2) Dementia Status: Chronic Qualifiers: Dementia type: unspecified type Dementia behavioral disturbance: without behavioral disturbance Qualified Code(s):
--- NOTE | 2019-11-23 08:54 | ECG_ITS ---
APPROVED REPORT Exam: Resting ECG HR:147 bpm ECG Measurements Heart Rate 147 AXES QRSd 84 QRS -4 QT 296 T 8 QTc 463 Conclusion Atrial fibrillation with rapid ventricular response Inferior infarct-old Abnormal ECG Electronically signed by : Darci Motta, 11/23/2019 14:15:22
--- NOTE | 2019-11-23 09:08 | HMH.PHACONS ---
- Pharmacy Consult Date: 11/23/19 Time: 09:08 Referring provider: DR. ROGERS Reason for Consult:: VANCOMYCIN DOSING Allergies and ADEs:: Allergies Allergy/AdvReac Type Severity Reaction Status Date / Time risperidone [From Risperdal] Allergy Verified 11/20/19 03:47 Home Medications:: Home Medications Medication Instructions Recorded Confirmed Type Simvastatin 20 mg PO HS 03/13/17 11/20/19 History Thiamine HCl [Vitamin B-1] 250 mg PO DAILY 10/11/18 11/20/19 History Naproxen Sodium [Aleve 220mg Tab] 220 mg PO BID PRN 10/16/18 11/20/19 History Acetaminophen [Tylenol 500mg 1,000 mg PO BID 11/20/19 11/20/19 History tablet] Acetaminophen [Tylenol 500mg 500 mg PO Q6 PRN 11/20/19 11/20/19 History tablet] Buspirone HCl [Buspar 10mg 10 mg PO BID 11/20/19 11/20/19 History tablet] Carbidopa/Levodopa 1 each PO TID 11/20/19 11/20/19 History [Carbidopa/Levodopa 25/100mg Tablet] Docusate Sodium [Colace] 100 mg PO BID 11/20/19 11/20/19 History bisacodyL [Dulcolax 10mg Supp] 10 mg RC DIRECTED PRN 11/20/19 11/20/19 History Height: 1.7 m Weight: 63.248 kg Laboratory Results:: Laboratory Results - last 24 hr 11/20/19 12:50: Blood Type A Positive, Antibody Screen Negative, Crossmatch (AHG) See Detail 11/22/19 13:55: Hgb 9.8 L D, Hct 29.9 L 11/23/19 06:26: Sodium 144, Potassium 3.5, Chloride 112 H, Carbon Dioxide 26, Anion Gap 9.5, BUN 33 H, Creatinine 0.70, Estimated Creat Clear 52, Estimated GFR 108, Est GFR ( Amer) 131, Glucose 89, Calcium 8.6, Total Bilirubin 1.2, AST 58, ALT 19 D, Alkaline Phosphatase 56, Total Protein 5.8 L, Albumin 2.9 L, Globulin 2.9, Albumin/Globulin Ratio 1.0 L 11/23/19 06:26: WBC 13.5 H, RBC 3.00 L D, Hgb 9.5 L, Hct 29.7 L, MCV 99.0 H, MCH 31.6 H, MCHC 31.9, RDW 14.9, Plt Count 191, MPV 10.1, Neut % (Auto) 85.8 H, Lymph % (Auto) 6.3 L, [place] % (Auto) 7.6, Eos % (Auto) 0.1, Baso % (Auto) 0.2, Neut # (Auto) 11.6 H, Lymph # (Auto) 0.9, [place] # (Auto) 1.0, Eos # (Auto) 0.0, Baso # (Auto) 0.0, Total Counted 100, Neutrophils % (Manual) 74, Lymphocytes % (Manual) 25, Monocytes % (Manual) 1 L, Platelet Estimate Normal, Hypochromasia 1+, Macrocytosis 1+, Rouleaux 2+ Medical History: Reports:: Coronary Artery Disease, Dementia, Hyperlipidemia, Hypertension, Myocardial Infarction Denies:: Cancer, Diabetes Mellitus Type 1, Diabetes Mellitus Type 2 Assessment and Plan (1) Hip fracture Status: Acute Qualifiers: Qualified Code(s): S72.002A - Fracture of unspecified part of neck of left femur, initial encounter for closed fracture Category: Medical Code(s): S72.009A - Fracture of unspecified part of neck of unspecified femur, initial encounter for closed fracture (2) Dementia Status: Chronic Qualifiers: Qualified Code(s): F03.90 - Unspecified dementia without behavioral disturbance Category: Medical Code(s): F03.90 - Unspecified dementia without behavioral disturbance (3) Parkinsons disease Status: Chronic Category: Medical Code(s): G20 - Parkinson's disease (4) S/P CABG x 6 Status: Chronic Category: Surgical Code(s): Z95.1 - Presence of aortocoronary bypass graft (5) HHD (hypertensive heart disease) Status: Chronic Qualifiers: Qualified Code(s): I11.9 - Hypertensive heart disease without heart failure Category: Medical Code(s): I11.9 - Hypertensive heart disease without heart failure (6) HLD (hyperlipidemia) Status: Chronic Qualifiers: Qualified Code(s): E78.2 - Mixed hyperlipidemia Category: Medical Code(s): E78.5 - Hyperlipidemia, unspecified (7) Hypertension Status: Acute Category: Medical Code(s): I10 - Essential (primary) hypertension (8) Anemia Status: Acute Category: Medical Code(s): D64.9 - Anemia, unspecified (9) UTI (urinary tract infection) Status: Acute Category: Medical Code(s): N39.0 - Urinary tract infection, site not specified (10) Severe protein-calorie malnutrition St
[2019-11-23 10:00] LABS: Lactate Dehydrogenase 308 U/L (313-618)
--- NOTE | 2019-11-23 10:02 | PC.NURSE ---
Gloria from speech therapy called to check on status of this pt. Rn stated that he was unable to participate in bedside swallow eval.
[2019-11-23 10:13] LABS: Troponin I 0.81 ng/ml (0.00-0.034)
--- NOTE | 2019-11-23 11:58 | PC.NURSE ---
spoke with dr. fortune about ekg and critical troponin of 0.81 at 1025 obtained order for 5mg iv metoprolol one time. gave this at 1035 after 30-45 minutes no change noted and md notified. 1135 md gave order to give 5mg more of metoprolol. bp is stable/elevated. md also stated if patient appeared in pain or if in 15 mins the heart rate is not consistently 100-110 then to give a dose of morphine based on mar. if no improvement in heart rate after morphine in 15-30 mins then to start patient on a cardizem drip to keep systolic greater than 100 and heart rate less than 100. then to transfer patient to stepdown. if patient bp is on lower end can aim for a heart rate goal of less than 110. also asked nursing staff to reach out to family later today and see if they would want us to place an ng so patient could get his oral meds
--- NOTE | 2019-11-23 13:07 | PC.NURSE ---
pt transferred to step down room 217. RN changed to Farzana Carrillo. Received report from Luis Fernando Cha RN and Serafin Major RN. HR 140s, BP 141/84, RR 20 and sat 96% on 2L NC.
--- NOTE | 2019-11-23 13:21 | PC.NURSE ---
Diltiazem gtt started @ 10mg/hr (10mL/hr) via left AC PIV. Daughter is @ BS.
--- NOTE | 2019-11-23 13:25 | PC.NURSE ---
Sinemet tab not given secondary to daughter refusing NG tube placement for po meds @ this time. Pt is not alert and is unable to follow commands to swallow meds.
--- NOTE | 2019-11-23 13:33 | PC.NURSE ---
HR continues in the 120-130s. BP 118/80. Diltiazem gtt increased to 15mg/hr (15mL/hr).
--- NOTE | 2019-11-23 13:39 | PC.NURSE ---
long discussion with patient family about current care and treatment. educated about change in status, and need to be transferred to stepdown unit. they voiced a good understanding on current care, condition and treatment. Educated them about possible need for ng tube in order to get nutrition and pills down. family stated that according to patients wishes before he was unable to voice needs/concerns he did not want anything done including a feeding tube even an ng tube that would be temporary. stated that they wished for him to be comfortable if his condition was to worsen and felt an ng tube would not be comfortable for him
--- NOTE | 2019-11-23 17:35 | PC.NURSE ---
Pt has remained in Aflutter 2:1 or 3:1 since transferring to stepdown. Will have an occasional PVC. Diltiazem gtt is maxed out @ 15mg/hr (15mL/hr). HR 80-130 and is irregular. Is on 2L NC and sats are in the 90s with an occasional drop to high 80s. Pt is nonverbal. Is mouth breathing. Attempted oral care but he became agitated. Has been turned and repositioned Q2hrs. Abductor pillow between legs. Left hip dressing was changed this morning by Serafin Major RN. Bruising noted all over body. Lovenox is currently on HOLD.
--- NOTE | 2019-11-23 19:48 | PC.NURSE ---
late entry: new boarder gauze placed on l hip incision site around 0900. site is c/d bruising noted
--- NOTE | 2019-11-23 21:09 | PC.NURSE ---
Pt currently resting on (R) side. Tolerated repositioning poorly. Remains on diltiazem gtt @ 15 mg/hr. NS infusing @ 125 ml/hr. Cefepime also infusing at this time @ 200 ml/hr. New IV placement in RFA #20 and (R) wrist #20. Pt tolerated well. Pt had incontinent void. Brief changed. Oral care provided. VS currently stable at this time. Will continue to monitor.
--- NOTE | 2019-11-23 21:41 | PC.NURSE ---
Diltiazem gtt titrated to 10 mg/hr
[2019-11-24] VITALS (20 sets, daily range): BP systolic 97–143; BP diastolic 46–74; PULSE 73–147; RESP 21–30; TEMP 37.1–37.9; O2SAT 85–97; BMI 22.2
--- NOTE | 2019-11-24 03:36 | PC.NURSE ---
Pt remains on Diltiazem gtt. Currently @ 15 mg/hr. Titrated per protocol. Pt has been febrile this shift. Medicated per apr. Bath given and bed linens changed. Oral care provided. Pt turned and repositioned. DSG to (L) hip C/D/I. Bruising noted t/o (L) hip. Bruising also noted to MARIKA. Lovenox held per . PO medication held due to pt drowsy and not able to swallow effectively. VSS at this time. Will continue to monitor.
--- NOTE | 2019-11-24 03:50 | PC.NURSE ---
Diltiazem titration 2311 - 5 mg/hr 0149 - 10 mg/hr 0240 - 15 mg/hr
[2019-11-24 05:11] LABS: Basophils % 0.2 % (0.1-2.0); Eosinophils # 0.1 K/mm3 (0.0-0.4); Eosinophils % 0.3 % (0.1-12.0); Hematocrit 30.6 % (42.0-52.0); Hemoglobin 9.6 g/dL (14.1-18.0); Lymphocytes # 0.8 K/mm3 (0.7-4.5); Lymphocytes % 5.1 % (10-50); Mean Corpuscular HGB Conc 31.4 g/dL (31.8-35.4); Mean Corpuscular Hemoglobin 32.2 pg (27.0-31.2); Mean Corpuscular Volume 102.6 fl (80-94); Monocytes # 0.9 K/mm3 (0.1-1.0); Monocytes % 5.6 % (1.7-9.3); Neutrophils # 13.7 K/mm3 (1.8-7.8); Neutrophils % 88.9 % (37.0-80.0); Platelet Count 264 K/mm3 (142-424); Red Blood Count 2.98 M/mm3 (4.60-6.20); Red Cell Distribution Width 14.5 % (11.5-17.5); White Blood Count 15.4 K/mm3 (4.8-10.8)
[2019-11-24 05:13] LABS: MANUAL DIFFERENTIAL MANUAL DIFFERENTIAL (MANUAL DIFF)
[2019-11-24 05:20] LABS: Hypochromasia 2+; Lymphocytes % 7 % (10-50); Macrocytosis 2+; Monocytes % 2 % (2-9); Neutrophils % 90 % (42-76); Platelet Estimate Normal; Total Cells Counted 100
[2019-11-24 05:21] LABS: Alanine Aminotransferase 22 U/L (12-78); Albumin Level 2.9 g/dl (3.5-5.0); Alkaline Phosphatase 55 U/L (38-126); Anion Gap 10.9 mEq/L (5-15); Aspartate Amino Transferase 64 U/L (17-59); Blood Urea Nitrogen 33 mg/dl (9-20); Calcium 8.5 mg/dl (8.4-10.2); Carbon Dioxide 26 mmol/L (22.0-30.0); Chloride 115 mmol/L (98-107); Creatinine Clearance Estimated 52 mL/min (50-200); Estimated Glomerular Filt Rate 108 ml/min (>60); GFR (African American) 131 ML/MIN (>60); Globulin 2.9 g/dL (1.3-3.2); Glucose 103 mg/dl (74-100); Potassium 3.9 mmoL/L (3.5-5.1); Sodium 148 mmol/L (136-145); Total Protein,Serum 5.8 g/dl (6.3-8.2)
[2019-11-24 05:39] LABS: Troponin I 2.14 ng/ml (0.00-0.034)
--- NOTE | 2019-11-24 06:01 | PC.NURSE ---
notified of Troponin 2.14. No new orders at this time.
--- NOTE | 2019-11-24 07:57 | PC.NURSE ---
0710 -Noted that pt's HR was increasing to 140's-150's and sustaining, maxed on Cardizem @ 15 mls/hr. Entering room pt was unrepsonsive even after sternal rubs. Pt's rectal temp checked, 98.7. Pt felt clammy to touch. Lungs diminished upon auscultation, resp rate 30 w/ noted accessory muscle. Abdomen soft, w/ active BS in all quads. 0745 - Pt began to desat to 79%, pt placed on venturi mask, sats still only getting to 86%. Pt then placed on non-rebreather w/ sats ranging 92-93%. Blood sugar checked - 103 Dr. Hoover aware of this. Orders received for EKG and Lovenox to be restarted this AM. 0810 - Family called and made aware of change in pt's status. Pt remains on non-rebreather w/ sat currently 90%. Resp 22/min, HR better controlled ranging 80's-100. BP stable, currently 104/48. Awaiting families arrival, will then page Dr. Hoover to speak w/ them.
--- NOTE | 2019-11-24 08:52 | HMH.ACPN2 ---
Internal Medicine - PN: Subj *Date: 11/24/19 *Time: 13:37 Interval history: Patient with worsening A. fib with RVR yesterday, started on diltiazem drip. Has proceeded to decline clinically in the past 24 hours. Increased oxygen requirement this morning, now requiring Ventimask for saturations greater than 90%. EKG obtained this morning showing inferior wall OH. Troponins elevated over the past 24 hours. Patient unresponsive on exam this morning. Family at bedside this morning (daughter), discussed goals of care. Exam Vital signs and Labs for Last 24 Hours: Temp Pulse Resp BP Pulse Ox 99.4 F 122 H 30 H 117/62 90 L 11/24/19 04:00 11/24/19 08:00 11/24/19 08:00 11/24/19 06:00 11/24/19 08:00 Laboratory Results - last 24 hr 11/20/19 12:50: Crossmatch (AHG) See Detail 11/23/19 09:25: Lactate Dehydrogenase 308 L 11/23/19 09:25: Troponin I 0.81 H 11/24/19 05:00: WBC 15.4 H, RBC 2.98 L, Hgb 9.6 L, Hct 30.6 L, MCV 102.6 H, MCH 32.2 H, MCHC 31.4 L, RDW 14.5, Plt Count 264 D, MPV 9.0, Neut % (Auto) 88.9 H, Lymph % (Auto) 5.1 L, [place] % (Auto) 5.6, Eos % (Auto) 0.3, Baso % (Auto) 0.2, Neut # (Auto) 13.7 H, Lymph # (Auto) 0.8, [place] # (Auto) 0.9, Eos # (Auto) 0.1, Baso # (Auto) 0.0, Total Counted 100, Neutrophils % (Manual) 90 H, Band Neutrophils % 1.0, Lymphocytes % (Manual) 7 L, Monocytes % (Manual) 2, Platelet Estimate Normal, Hypochromasia 2+, Macrocytosis 2+ 11/24/19 05:00: Sodium 148 H, Potassium 3.9, Chloride 115 H, Carbon Dioxide 26, Anion Gap 10.9, BUN 33 H, Creatinine 0.70, Estimated Creat Clear 52, Estimated GFR 108, Est GFR ( Amer) 131, Glucose 103 H, Calcium 8.5, Total Bilirubin 1.0, AST 64 H, ALT 22, Alkaline Phosphatase 55, Troponin I 2.14 H, Total Protein 5.8 L, Albumin 2.9 L, Globulin 2.9, Albumin/Globulin Ratio 1.0 L I & O for Last 24 hours: Intake & Output 11/21/19 11/22/19 11/23/19 11/24/19 23:59 23:59 23:59 23:59 Intake Total 3724 / 3724 2114 / 2114 3357 / 4233 1655 / 1655 Output Total 511 / 511 Balance 3213 / 3213 2114 / 2114 3357 / 4233 1655 / 1655 Weight 63 kg 64.892 kg 63.248 kg 64.41 kg Microbiology Reports for the Last 24 Hours: Microbiology 11/21/19 08:20 Urine,Catheterized Urine Culture - Preliminary Narrative: - Constitutional Moderate distress on Ventimask, thin, chronically ill appearing - *Routine HEENT Exam Head: Present: normocephalic Eye: Present: EOMI, PERRL ENT: Present: mucous membranes dry Comments: Bitemporal wasting - *Routine Neck Exam Present: supple. Absent: lymphadenopathy - *Routine Respiratory Exam Present: Fair air movement bilaterally,No wheeze or crackles - *Routine Cardiovascular Exam Present: Tachycardic, irregularly irregular, murmur (Systolic) - *Routine Abdominal Exam Present: soft, normoactive bowel sounds, Non-tender, scaphoid abdomen - *Routine Extremities Exam Absent: cyanosis, clubbing, edema, Left leg with surgical wound overlying left hip, significant bruising dependent to surgical incision, left thigh of larger circumference than the right. No mikhail erythema or streaking. Hematoma is somewhat warm however. Leg length equal bilaterally, neurovascularly intact in feet; sarcopenia - *Routine Skin Exam Present: warm. Absent: rash - *Routine Neurological Exam Present: altered mental status, tremors; patient unresponsive to verbal and painful stimuli this morning. Assessment and Plan (1) Acute hypoxemic respiratory failure Status: Acute Category: Medical Code(s): J96.01 - Acute respiratory failure with hypoxia (2) STEMI (ST elevation myocardial infarction) Status: Acute Category: Medical Code(s): I21.3 - ST elevation (STEMI) myocardial infarction of unspecified site (3) Hip fracture Status: Acute Qualifiers: Encounter type: initial encounter Fracture type: closed Laterality: left Qualified Code(s): S72.002A - Fracture of unspecified part of neck of left femur, initial encounter for cl
--- NOTE | 2019-11-24 08:55 | ECG_ITS ---
APPROVED REPORT Exam: Resting ECG HR:95 bpm ECG Measurements Heart Rate 95 AXES IA P 64 QRSd 72 QRS -16 QT 364 T 60 QTc 457 Conclusion Atrial flutter with variable AV block with premature ventricular or aberrantly conducted complexes Inferior infarct changes are old Abnormal ECG Electronically signed by : Ruddy Street, 11/24/2019 15:47:06
--- NOTE | 2019-11-24 09:55 | PC.NURSE ---
[facility] ESCALANTE @ 0930. ADMISSIONS AWARE THAT PT IS NO LONGER STEP-DOWN, PER DR. ROGERS.
--- NOTE | 2019-11-24 09:59 | PC.NURSE ---
Late Entry 0855 - Pt's daughter at bedside. Dr Hoover made aware and speaking w/ family about pt's current status. Family wishes to keep pt comfortably, withdrawing IVF, IV ABX, and cardizem gtt. Courtesy cart made available to family at bedside. 0930 - Pt's at bedside. Discussed pain medication and medication for agitation w/ family, verbalized understanding. Pt currently resting in bed w/ family present. No needs voiced by family at this time. Call perera available at bedside.
[2019-11-24 11:31] LABS: POC Glucose,Bedside 103 (70-110)
--- NOTE | 2019-11-24 11:33 | PC.NURSE ---
@ 1120 Pt placed on 4 L O2 per nasal cannula, SPO2 currently 90%.
--- NOTE | 2019-11-24 14:38 | DIET.NUTRFU ---
Pt receiving comfort care, remains unresponsive/unable to take PO intake. Weight is up 6# total t/o stay. He is malnourished. Have discussed nutrition needs/wishes with pt family, they do not want temporary or permanent enteral nutrition. Voiced understanding that pt will likely continue to be unable to receive nourishment through PO intake. Continuing to monitor and be available for pt family discussion/concerns.
--- NOTE | 2019-11-24 17:08 | PC.NURSE ---
Pt is comfort measures. Remains on 4 L O2 per nasal cannula. Pt continues to be unresponsive. Is receiving morphine and ativan prn for pain and agitation. Pt is resting comfortably. PERRLA, sluggish. Lungs diminished throughout, continues to use accessory muscles, resp 24/min. Abdomen soft w/ active BS in all quads. No edema noted. Pt has a large bruise to (L) arm and thigh w/ scattered bruising throughout from fall. Dressing to (L) thigh C/D/I. Is incontinent of bladder. No BM this shift. Has been turned and repositioned Q2H. Oral care provided Q2H as well. Remains in A-Fib on teley. Bed alarm in place. Call perera w/in reach. Family has went home @ this time. Will continue to monitor.
--- NOTE | 2019-11-24 19:03 | PC.NURSE ---
1854 - Noted that pt was bradying to 40's and 50's. 1857 - Made daughter aware of change in pt's condition. 1858 - Contacted pt's @ this time. No answer, left voicemail. 1901 - Noted that pt was no longer breathing, and asystole on monitor. Dr Hoover paged. 1907 - Dr. Hoover made aware of pt's passing, request ED pronounce pt.
--- NOTE | 2019-11-24 19:16 | PC.NURSE ---
report given to tony
--- NOTE | 2019-11-24 19:20 | HMH.DEATH ---
Pronouncement Note - Date and Time of Date of : 11/24/19 Time of : 19:02 - PCOD Preliminary cause of : Acute respiratory failure - Additional Data Confirmation of : no pulse, no respirations, no heart sounds, pupils fixed and dilated Family: contacted Attending/PCP notified?: Yes (Nilson called from ED) Attending physician: Ruddy Street MD Was code activated?: No (Patient was DNR)
--- NOTE | 2019-11-24 19:30 | PC.NURSE ---
1929 - ERINN CONTACTED @ THIS TIME. PT R/O FOR DONATION SPOKE W/ VICENTE HART. CASE #[id number]
--- NOTE | 2019-11-24 19:40 | PC.NURSE ---
DAUGHTER AT BEDSIDE AT THIS TIME, COMFORTED AND OFFERED TO MAKE PHONE CALLS TO ADDITIONAL FAMILY, INCLUDING OF PT. DAUGHTER STATED I WILL MAKE SURE IS CONTACTED, I WILL PROBABLY HAVE MY BROTHER CALL AND NOTIFY HER.
--- NOTE | 2019-11-24 19:48 | PC.NURSE ---
[facility] CONTACTED IN REGARDS OF FAMILY'S REQUEST FOR SERVICES.
--- NOTE | 2019-11-24 20:31 | HMH.DEADDC ---
Discharge Sum: Prov - Provider Primary care physician: Ruddy Street MD Visit Care Team Role Provider Type Julián Blanco MD Other Providers Staff Physician Catherine Moore MD Other Providers Staff Physician Ruddy Street MD Attending Provider Staff Physician Primary Care Provider Barrington Jimenez MD Admit Provider Staff Physician Emergency Provider Admitting clinician: Mikel Hoover Attending physician on admission: Mikel Hoover Consults: 11/20/19 08:00 On-Call Ortho Consult [Consult to On-Call Orthopedic Surgeon] [CONS] Routine Comment: Consulting Provider: Orthopedic Surgeons Consult on-call surgeon?: Yes Reason For Consult: hip fx 11/21/19 08:04 Nutrition Consult [CONS] Routine Comment: Reason for Nutrition Consult: Other Diet Instruction Type/Other: modification Pronouncing clinician: Jason Devien Discharge Sum: Diag - PCOD Cause of : Cardiac arrest Discharge Sum: Summary - Date and Time Date of admission: 11/20/19 05:49 Date of : 11/24/19 Time of : 19:02 - Hospital Course prior to Hospital Course Information: Mr. Abebe was admitted for hip fracture in the setting of progression/decline of his chronic dementia and Parkinson's. Discussed risks and benefits of surgical intervention with family and decision was made to surgically intervene to secure broken hip. Unfortunately patient did not improve after surgery with no tolerance of p.o. intake, persistent anemia necessitating holding of anticoagulation even in the setting of multiple transfusions, and onset of A. fib with RVR. Discussions with family on goals of care led to decision to stop curative measures in the setting of acute on chronic worsening of conditions. Patient transition to hospice type care with medication for pain and agitation. He was kept comfortable and passed peacefully. - Additional Data Confirmation of as documented by pronouncing clinician: no pulse, no respirations, no heart sounds, pupils fixed and dilated Family: contacted Attending/PCP notified?: Yes Attending physician: Ruddy Street MD Was code activated?: No Autopsy requested?: No certified driver examiner notified?: Yes Organ bank notified?: Yes Hospice patient?: No
--- NOTE | 2019-11-24 21:29 | PC.NURSE ---
home off floor with patient.
== END 2019-11-24 21:30 | disposition expired | DRG 521 ==
LOC: ER 03:38 → 2ND 05:12
PROVIDERS: Internal Medicine Adolescent Medicine; Orthopaedic Surgery; Admitting Provider Emergency Medicine; Emergency Provider Emergency Medicine; PCP Internal Medicine Adolescent Medicine; Visit Provider Internal Medicine Adolescent Medicine
PROC: 0SRS03A Replacement of Left Hip Joint, Femoral Surface with Ceramic Synthetic Substitute, Uncemented, Open Approach (ICD-10-PCS; principal; 2019-11-20 11:30)
DX: S72.012A Unspecified intracapsular fracture of left femur, initial encounter for closed fracture (principal); E43 Unspecified severe protein-calorie malnutrition; J96.01 Acute respiratory failure with hypoxia; I21.3 ST elevation (STEMI) myocardial infarction of unspecified site; D62 Acute posthemorrhagic anemia; I48.92 Unspecified atrial flutter; Z68.22 Body mass index [BMI] 22.0-22.9, adult; I48.91 Unspecified atrial fibrillation; G20 Parkinson's disease; Z87.891 Personal history of nicotine dependence; Z95.1 Presence of aortocoronary bypass graft; F02.80 Dementia in other diseases classified elsewhere, unspecified severity, without behavioral disturbance, psychotic disturbance, mood disturbance, and anxiety; I11.9 Hypertensive heart disease without heart failure; I25.10 Atherosclerotic heart disease of native coronary artery without angina pectoris; W19.XXXA Unspecified fall, initial encounter; Y92.129 Unspecified place in nursing home as the place of occurrence of the external cause
CPT/HCPCS: 27236; 36415; 70450; 71045; 72125; 72170; 73502; 73552; 73700; 80053; 81001; 82962; 83615; 83735; 84484; 85007; 85014; 85018; 85025; 85610; 86328; 86850; 87040; 87086; 87186; 92610; 93005; 93308; 94761; 97110; 97163; 97165; 97530; 99284; C1713; C1776; J3370; P9016; U0003